=== PATIENT | female | born 1960 | race Caucasian/White ===

== ENCOUNTER → 2017-05-26 10:19 | Outpatient (REF) | payer MEDICARE, MEDICAID, SELFPAY ==
[2017-05-26 14:04] LABS: Amphetamine/Metha Screen,Urine Negative ng/mL (<1000); Barbiturates Screen,Urine Negative ng/mL (<200); Benzodiazepines Screen,Urine Positive ng/mL (200); Cannabinoid Screen,Urine Negative ng/mL (<50); Cocaine Screen,Urine Negative ng/g (<300); Methadone Screen,Urine Negative ng/mL (<300); Opiate Screen,Urine Negative ng/mL (<300); Phencyclidine Screen,Urine Negative ng/mL (<25)
== END ==
LOC: LAB 10:19
PROVIDERS: Visit Provider Emergency Medicine
DX: Z79.899 Other long term (current) drug therapy (principal)
CPT/HCPCS: 80305

== ENCOUNTER → 2017-05-27 10:03 | Outpatient (POV) | payer MEDICARE, MEDICAID, SELFPAY | PROVIDERS: PCP Emergency Medicine; Visit Provider Dermatology | DX: Z00.00 Encounter for general adult medical examination without abnormal findings (principal) ==

== ENCOUNTER → 2017-08-05 14:50 | Outpatient (CLI) | payer MEDICARE, MEDICAID, SELFPAY ==
--- NOTE | 2017-08-05 14:53 | CA_ITS ---
PROCEDURE: 2-D M-mode and color Doppler study INDICATIONS FOR THE TEST: Chest painx COPD Heart Murmur Tobacco Smoking Palpitationsx Fatiguex Syncopex Edema HypertensionxDiabetes Mellitus Rheumatic Fever SOBxDOE Obesity Hyperlipidemiax Family History HD Additional History PATIENT INFORMATION HEIGHT: 5'4'' WEIGHT:176 GENDER: Female B/P: 107/66 2-D/M-MODE INTERPRETATION: 2-D MEASUREMENTS OBSERVED VALUES IN CMS Right Ventricular Dimension (RVDd) 2.5 Interventricular Septum (Thickness)(IVsd) 0.9 Left Ventricular Internal Dimensions(LVIDd) 4.4 Left Ventricular Posterior Wall (Thickness)(LVPWd) 0.8 Aortic Root 2.7 Aortic Cusp Separation 1.9 Left Atrial Dimensions (LAD) 3.1 2D 1. Left atrium is normal size, left ventricle is normal size, there is no concentric left ventricular hypertrophy, visually estimated ejection fraction 55% with no obvious regional wall motion abnormality. 2. The right atrium is normal size, right ventricle is qualitatively mildly enlarged with normal contractility. 3. The aortic, mitral and tricuspid valve is normal. 4. The pulmonic valve is poorly visualized. 5. No significant pericardial effusion noted. DOPPLER INTERROGATION: Doppler interrogation of the aortic, mitral and tricuspid valve reveals presence of mild mitral and tricuspid regurgitation, tricuspid regurgitant jet velocity insufficient for calculation of the right ventricular systolic pressure, grade 1 diastolic dysfunction seen without tissue Doppler evidence of raised left atrial pressure. CONCLUSION: 1. Normal left ventricular size, preserved left ventricular systolic function, visually estimated ejection fraction 55% with no obvious regional wall motion abnormality, grade 1 diastolic dysfunction seen without tissue Doppler evidence of raised left atrial pressure. 2. Mild mitral and tricuspid regurgitation 3. No significant pericardial effusion noted.
== END ==
PROVIDERS: PCP Emergency Medicine; Visit Provider Internal Medicine
DX: R07.89 Other chest pain (principal); E78.5 Hyperlipidemia, unspecified
CPT/HCPCS: 93306

== ENCOUNTER → 2017-08-20 13:55 | Outpatient (CLI) | payer MEDICARE, MEDICAID, SELFPAY ==
[2017-08-20 14:39] LABS: Amphetamine/Metha Screen,Urine Negative ng/mL (<1000); Barbiturates Screen,Urine Negative ng/mL (<200); Benzodiazepines Screen,Urine Positive ng/mL (200); Cannabinoid Screen,Urine Negative ng/mL (<50); Cocaine Screen,Urine Negative ng/g (<300); Methadone Screen,Urine Negative ng/mL (<300); Opiate Screen,Urine Negative ng/mL (<300); Phencyclidine Screen,Urine Negative ng/mL (<25)
== END ==
PROVIDERS: Visit Provider Emergency Medicine
DX: Z79.899 Other long term (current) drug therapy (principal)
CPT/HCPCS: 80305

== ENCOUNTER → 2017-11-16 09:21 | Outpatient (REF) | payer MEDICARE, MEDICAID, SELFPAY ==
[2017-11-16 14:04] LABS: Basophils # 0.1 K/mm3 (0-0.2); Basophils % 0.7 % (0.1-2.0); Eosinophils # 0.1 K/mm3 (0.0-0.4); Eosinophils % 0.9 % (0.1-12.0); Hematocrit 35.9 % (37.0-47.0); Hemoglobin 11.7 g/dL (12.2-16.2); Lymphocytes # 3.2 K/mm3 (0.7-4.5); Lymphocytes % 36.2 K/mm3 (10-50); Mean Corpuscular HGB Conc 32.5 g/dL (31.8-35.4); Mean Corpuscular Hemoglobin 28.7 pg (27.0-31.2); Mean Corpuscular Volume 88.2 fl (81-99); Mean Platelet Volume 7.7 fl (7.4-10.4); Monocytes # 0.7 K/mm3 (0.1-1.0); Monocytes % 7.8 % (1.7-9.3); Neutrophils # 4.7 K/mm3 (1.8-7.8); Neutrophils % 54.4 % (37.0-80.0); Platelet Count 372 K/mm3 (142-424); Red Blood Count 4.07 M/mm3 (4.20-5.40); Red Cell Distribution Width 13.2 % (11.5-17.5); White Blood Count 8.7 K/mm3 (4.8-10.8)
[2017-11-16 15:45] LABS: Amphetamine/Metha Screen,Urine Negative ng/mL (<1000); Barbiturates Screen,Urine Negative ng/mL (<200); Benzodiazepines Screen,Urine Positive ng/mL (<200); Cannabinoid Screen,Urine Negative ng/mL (<50); Cocaine Screen,Urine Negative ng/mL (<300); Methadone Screen,Urine Negative ng/mL (<300); Opiate Screen,Urine Negative ng/mL (<300); Phencyclidine Screen,Urine Negative ng/mL (<25)
[2017-11-16 16:05] LABS: Alanine Aminotransferase 24 U/L (12-78); Albumin Level 3.9 gm/dL (3.4-5.0); Alkaline Phosphatase 110 U/L (46-116); Anion Gap 15.3 mEq/L (5-15); Aspartate Amino Transferase 16 U/L (15-37); Bilirubin,Total 0.3 mg/dL (0.2-1.0); Blood Urea Nitrogen 6 mg/dL (7-18); Calcium 9.2 mg/dL (8.5-10.1); Carbon Dioxide 30 mmol/L (21.0-32.0); Chloride 101 mmol/L (98-107); Creatinine,Serum 1.26 mg/dL (0.55-1.02); Estimated Glomerular Filt Rate 44 ml/min (>60); Free T4 (Free Thyroxine) 0.94 ng/dl (0.76-1.46); GFR (African American) 53 ML/MIN (>60); Globulin 3.9 gm/dl (1.3-3.2); Glucose 95 mg/dL (74-106); Potassium 4.3 mmoL/L (3.5-5.1); Sodium 142 mmol/L (136-145); Thyroid Stimulating Hormone 2.36 uIU/ml (0.358-3.740); Total Protein,Serum 7.8 gm/dL (6.4-8.2)
[2017-11-19 06:33] LABS: Vitamin D 25 Hydroxy 24.4 ng/mL (30.0-100.0)
== END ==
LOC: LAB 09:21
PROVIDERS: Visit Provider Emergency Medicine
DX: Z79.899 Other long term (current) drug therapy (principal); R53.83 Other fatigue
CPT/HCPCS: 80053; 80305; 82652; 84439; 84443; 85025

== ENCOUNTER → 2018-01-13 08:56 | Outpatient (CLI) | payer MEDICARE, MEDICAID, SELFPAY ==
--- NOTE | 2018-01-13 08:57 | MM_ITS ---
MM Dig screening mamm BI w/CAD CAD Screening COMPARISON: Digital mammograms with CAD 08/20/2016 and 06/27/2015 INDICATION: There is a history of breast cancer patient paternal cousin and paternal aunt TECHNIQUE: Standard CC and MLO images were obtained. R2 CAD reviewed. FINDINGS: Prominent heterogenic fibroglandular densities are seen in the central portions of both breast. There is a stable asymmetric density near the axilla tail right breast. However the possible new asymmetric density upper portion of the right breast only definitely seen on MLO projection. Recommend the patient return for spot compression view and 90 degrees lateral view and rolled CC views of the right right breast and ultrasound may be necessary as well. There are no suspicious microcalcifications. IMPRESSION: Heterogenic density with possible new density right breast BI-RADS Category: 0 Need Additional Imaging Evaluation RECOMMENDED FOLLOW-UP: IMM - IMMEDIATE FOLLOW-UP RECOMMENDED (A letter has been sent to the patient regarding results of the study.)
--- NOTE | 2018-01-13 08:57 | US_ITS ---
US breast LT complete INDICATION: Left breast pain ORDERING PHYSICIAN: Holland Estes MD PATIENT AGE: 58 years COMPARISON: 06/27/2015 TECHNIQUE: Left breast ultrasound performed along with axilla FINDINGS: There are multiple scattered cystic areas noted some of which are complex. 5 mm hypoechoic nodule at 2:00. 5 mm hypoechoic nodule at 2:00 near the nipple. These were not demonstrated previously. 6 mm hypoechoic nodule at 3:00 9 mm hypoechoic nodule at 3:00 5 mm hypoechoic nodule at 4:00 not demonstrated previously with some internal septations 8 x 3 mm hypoechoic nodule at 9:00 not demonstrated previously 6 mm hypoechoic nodule with internal septation at 10:00 6 an 8 mm hypoechoic nodules in the retroareolar region No suspicious solid appearing nodules are evident IMPRESSION: Multiple hypoechoic nodules some of which are cysts and some of which likely represent complex cyst. Some were not present previously BI-RADS Category: 3 Probably Benign Finding Short Term Follow-up RECOMMENDED FOLLOW-UP: 6M - 6 MONTH FOLLOW-UP (A letter has been sent to the patient regarding results of the study.)
--- NOTE | 2018-01-13 09:43 | US_ITS ---
US kidney retroperitoneal comp HISTORY: ITS.REASON: azotemia ORDERING PHYSICIAN: Holland Estes MD PATIENT AGE: 57 years Comparison: None FINDINGS: RIGHT KIDNEY:Unremarkable. Normal size and echogenicity. No hydronephrosis. 9 x 4 x 5 cm LEFT KIDNEY:Unremarkable. No hydronephrosis. Normal size and echogenicity. 9 x 4 x 5 cm. There is some mild cortical lobulation of the left kidney OTHER FINDINGS: Blood flow present to both kidneys. IMPRESSION: 1. No hydronephrosis. 2. Mild cortical lobulation of left kidney suggesting mild scarring
== END ==
PROVIDERS: PCP Emergency Medicine; Visit Provider Nurse Practitioner Obstetrics & Gynecology
DX: Z12.31 Encounter for screening mammogram for malignant neoplasm of breast (principal); N64.4 Mastodynia; R79.89 Other specified abnormal findings of blood chemistry; R92.2 Inconclusive mammogram
CPT/HCPCS: 76641; 76770; 77067

== ENCOUNTER → 2018-02-02 13:29 | Outpatient (CLI) | payer MEDICARE, MEDICAID, SELFPAY ==
--- NOTE | 2018-02-02 13:31 | MM_ITS ---
MM Dig mamm DX unilat RT CAD INDICATION: Follow-up abnormal screening study ORDERING PHYSICIAN: Holland Estes MD PATIENT AGE: 58 years COMPARISON: 01/13/2018 TECHNIQUE: Problem-solving views performed of the right breast FINDINGS: There is dense fibroglandular tissue. The asymmetric density noted in the superior aspect of the right breast partially compresses out with some minimal residual density noted in this region. There remains an asymmetric density in the deep upper right breast measuring 14 mm. This however has been present since 07/21/2013 and is probably related to asymmetric fibroglandular tissue. Nodular density was noted also in the deep central portion of the right breast slightly medial and 12 mm. Retroareolar nodular opacity at 4 mm also noted. An ultrasound was requested of the right breast but could not be performed on that date. No malignant appearing mass or malignant appearing microcalcification. IMPRESSION: Incomplete, additional evaluation suggested with right breast ultrasound. The patient was scheduled for ultrasound 02/08/2018. However, for reasons unknown to this reader, the exam was not performed on that day BI-RADS Category: 0 Need Additional Imaging Evaluation RECOMMENDED FOLLOW-UP: IMM - IMMEDIATE FOLLOW-UP RECOMMENDED (A letter has been sent to the patient regarding results of the study.)
--- NOTE | 2018-02-02 13:32 | XR_ITS ---
XR knee RT 4V HISTORY: Pain and swelling ITS.REASON: weightbearing views ORDERING PHYSICIAN: Holland Estes MD PATIENT AGE: 58 years COMPARISON: None FINDINGS: No fracture or dislocation. No lytic or blastic change. Normal mineralization. There are minor osteoarthritic changes of the lateral compartment with slight decrease in the joint space and minimal spurring along the lateral tibial spine. Minimal spurring also noted along the superior patella. IMPRESSION: Mild osteoarthritis, otherwise negative
--- NOTE | 2018-02-02 13:32 | XR_ITS ---
XR knee LT 4V HISTORY: Knee pain ITS.REASON: weightbearing views ORDERING PHYSICIAN: Holland Estes MD PATIENT AGE: 58 years COMPARISON: None FINDINGS: No fracture or dislocation. No lytic or blastic change. Normal mineralization. No significant arthritic changes evident. No other significant findings IMPRESSION: Negative left Knee
== END ==
PROVIDERS: PCP Emergency Medicine; Visit Provider Nurse Practitioner Obstetrics & Gynecology
DX: R92.2 Inconclusive mammogram (principal); M25.561 Pain in right knee; M25.562 Pain in left knee
CPT/HCPCS: 73564; 77065

== ENCOUNTER → 2018-02-09 09:41 | Outpatient (REF) | payer MEDICARE, MEDICAID, SELFPAY ==
[2018-02-09 15:23] LABS: Amphetamine/Metha Screen,Urine Negative ng/mL (<1000); Barbiturates Screen,Urine Negative ng/mL (<200); Benzodiazepines Screen,Urine Positive ng/mL (<200); Cannabinoid Screen,Urine Negative ng/mL (<50); Cocaine Screen,Urine Negative ng/mL (<300); Methadone Screen,Urine Negative ng/mL (<300); Opiate Screen,Urine Negative ng/mL (<300); Phencyclidine Screen,Urine Negative ng/mL (<25)
== END ==
LOC: LAB 09:41
PROVIDERS: PCP Emergency Medicine; Visit Provider Emergency Medicine
DX: Z79.899 Other long term (current) drug therapy (principal)
CPT/HCPCS: 80305

== ENCOUNTER → 2018-02-22 14:29 | Outpatient (CLI) | payer MEDICARE, MEDICAID, SELFPAY ==
--- NOTE | 2018-02-22 14:36 | US_ITS ---
US breast RT complete INDICATION: Follow-up abnormal mammogram ORDERING PHYSICIAN: Holland Estes MD PATIENT AGE: 58 years COMPARISON:05/23/2014, 02/02/2018, 01/13/2018 and others TECHNIQUE: Right breast ultrasound with axilla FINDINGS: 5 mm cyst at 12:00, 4 mm complex cyst at 2:00 3 mm cyst at 3:00 4 mm cyst at 4:00 6 mm cyst at 9:00 7 mm hypoechoic lesion at 10:00 with through transmission of sound and may represent a complex cyst wider than tall probably unchanged from 05/23/2014 ultrasound IMPRESSION: Multiple hypoechoic lesions consistent with cyst or complex cyst. Some of which may correspond to the mammographic abnormalities. Recommend 6 month mammographic and sonographic follow-up BI-RADS Category: 3 Probably Benign Finding Short Term Follow-up RECOMMENDED FOLLOW-UP: 6M - 6 MONTH FOLLOW-UP (A letter has been sent to the patient regarding results of the study.)
== END ==
PROVIDERS: PCP Emergency Medicine; Visit Provider Nurse Practitioner Obstetrics & Gynecology
DX: R92.2 Inconclusive mammogram (principal)
CPT/HCPCS: 76641

== ENCOUNTER → 2018-03-31 13:14 | Outpatient (POV) | payer MEDICARE, MEDICAID, SELFPAY | PROVIDERS: Visit Provider Internal Medicine Nephrology | DX: Z00.00 Encounter for general adult medical examination without abnormal findings (principal) ==

== ENCOUNTER → 2018-05-16 14:01 | Outpatient (CLI) | payer MEDICARE, MEDICAID, SELFPAY ==
[2018-05-16 14:47] LABS: Amphetamine/Metha Screen,Urine Negative ng/mL (<1000); Barbiturates Screen,Urine Negative ng/mL (<200); Benzodiazepines Screen,Urine Positive ng/mL (<200); Cannabinoid Screen,Urine Negative ng/mL (<50); Cocaine Screen,Urine Negative ng/mL (<300); Methadone Screen,Urine Negative ng/mL (<300); Opiate Screen,Urine Negative ng/mL (<300); Phencyclidine Screen,Urine Negative ng/mL (<25)
== END ==
PROVIDERS: Visit Provider Emergency Medicine
DX: Z79.899 Other long term (current) drug therapy (principal)
CPT/HCPCS: 80305

== ENCOUNTER → 2018-05-24 08:28 | Outpatient (CLI) | payer MEDICARE, MEDICAID, SELFPAY ==
[2018-05-24 08:46] LABS: Basophils % 0.5 % (0.1-2.0); Eosinophils # 0.1 K/mm3 (0.0-0.4); Eosinophils % 1.1 % (0.1-12.0); Hematocrit 38.5 % (37.0-47.0); Hemoglobin 12.1 g/dL (12.2-16.2); Lymphocytes # 3.3 K/mm3 (0.7-4.5); Lymphocytes % 36.3 % (10-50); Mean Corpuscular HGB Conc 31.4 g/dL (31.8-35.4); Mean Corpuscular Hemoglobin 28.4 pg (27.0-31.2); Mean Corpuscular Volume 90.5 fl (81-99); Mean Platelet Volume 8.8 fl (7.4-10.4); Monocytes # 0.4 K/mm3 (0.1-1.0); Monocytes % 4.5 % (1.7-9.3); Neutrophils # 5.3 K/mm3 (1.8-7.8); Neutrophils % 57.7 % (37.0-80.0); Platelet Count 349 K/mm3 (142-424); Red Blood Count 4.25 M/mm3 (4.20-5.40); Red Cell Distribution Width 12.8 % (11.5-17.5); White Blood Count 9.2 K/mm3 (4.8-10.8)
[2018-05-24 09:43] LABS: Alanine Aminotransferase 19 U/L (12-78); Albumin Level 3.6 gm/dL (3.4-5.0); Alkaline Phosphatase 96 U/L (46-116); Anion Gap 11.7 mEq/L (5-15); Aspartate Amino Transferase 18 U/L (15-37); Bilirubin,Total 0.3 mg/dL (0.2-1.0); Blood Urea Nitrogen 12 mg/dL (7-18); Calcium 9.3 mg/dL (8.5-10.1); Carbon Dioxide 34 mmol/L (21.0-32.0); Chloride 99 mmol/L (98-107); Chol/HDL Ratio 4.5 (1-3.5); Cholesterol 201 mg/dL (140-200); Creatinine,Serum 1.35 mg/dL (0.55-1.02); Estimated Glomerular Filt Rate 40 ml/min (>60); GFR (African American) 49 ML/MIN (>60); Globulin 3.6 gm/dl (1.3-3.2); Glucose 124 mg/dL (74-106); HDL Cholesterol 45 mg/dL (29-89); LDL Cholesterol 92 mg/dL (0-130); Potassium 3.7 mmoL/L (3.5-5.1); Sodium 141 mmol/L (136-145); Total Protein,Serum 7.2 gm/dL (6.4-8.2); Triglycerides 322 mg/dL (30-200); VLDL Cholesterol 64 mg/dL (0-40)
[2018-05-24 11:08] LABS: Erythrocyte Sedimentation Rate 37 mm/hr (0-30)
== END ==
PROVIDERS: Visit Provider Internal Medicine Adolescent Medicine
DX: M35.3 Polymyalgia rheumatica (principal); E78.5 Hyperlipidemia, unspecified
CPT/HCPCS: 36415; 80053; 80061; 85025; 85651

== ENCOUNTER → 2018-06-02 08:35 | Outpatient (CLI) | payer MEDICARE, MEDICAID, SELFPAY ==
--- NOTE | 2018-06-02 08:41 | XR_ITS ---
XR hand RT min 3V, XR hand LT min 3V HISTORY: . Left and: right hand pain hand pain bilateral ORDERING PHYSICIAN: Abdirahman Castro MD PATIENT AGE: 58 years COMPARISON: Left hand 3 view TECHNIQUE: PA, Oblique and Lateral Hand ========= RIGHT HAND: No fracture or dislocation. No lytic or blastic change. There is normal mineralization.. . Only very slight narrowing at the DIP joints most evident at index finger & long finger /third finger. This reflect early degenerative changes here. Less evident DIP joint space narrowing at fourth and fifth finger on right.. . Borderline narrowing PIP joint of ring finger... No erosive changes evident.. The metacarpals are intact with carpals satisfactory and symmetric. Borderline-subtle narrowing questioned at lateral margin of the first MCP joint may reflect some very early minor degenerative changes here.. Only borderline narrowing at the carpal-metacarpal joint . Minor Undulation of the lateral aspect distal radius appears to be symmetric bilaterally and reflects the old close growth plate ======= LEFT HAND No fracture or dislocation. No lytic or blastic change. There is normal mineralization.. . Only very slight narrowing at the DIP joints most evident at long finger /third finger reflect early degenerative changes here. Less evident DIP joint space narrowing at second, fourth and fifth finger. . Borderline narrowing PIP joint of ring finger... No erosive changes evident.. The metacarpals are intact with carpals satisfactory and symmetric. Only borderline narrowing at the carpal-metacarpal joint . Small degenerative cystic feature at the distal navicular on left. Minor Undulation of the lateral aspect distal radius appears to be symmetric bilaterally and reflects the old close growth plate. ------ IMPRESSION: . No acute findings. No fracture. Subtle early degenerative arthritic changes at DIP joints bilaterally, Right hand-with most notable narrowing & early arthritic changes at the DIP joint of second & third finger. Left hand- of arthritic changes most notable at DIP joint the third finger and followed by second finger DIP joint.. Borderline narrowing MCP joint on right, more than left. Minor other observations in text.
== END ==
PROVIDERS: PCP Internal Medicine Adolescent Medicine; Visit Provider Orthopaedic Surgery
DX: M79.642 Pain in left hand (principal); M79.641 Pain in right hand
CPT/HCPCS: 73130

== ENCOUNTER → 2018-08-03 13:10 | Outpatient (POV) | payer MEDICARE, MEDICAID, SELFPAY | DX: Z00.00 Encounter for general adult medical examination without abnormal findings (principal) ==

== ENCOUNTER → 2018-08-12 17:32 | Outpatient (CLI) | payer MEDICARE, MEDICAID, SELFPAY ==
[2018-08-12 21:08] LABS: Amphetamine/Metha Screen,Urine Negative ng/mL (<1000); Barbiturates Screen,Urine Negative ng/mL (<200); Benzodiazepines Screen,Urine Negative ng/mL (<200); Cannabinoid Screen,Urine Negative ng/mL (<50); Cocaine Screen,Urine Negative ng/mL (<300); Methadone Screen,Urine Negative ng/mL (<300); Opiate Screen,Urine Negative ng/mL (<300); Phencyclidine Screen,Urine Negative ng/mL (<25)
[2018-08-20 15:25] LABS: Alprazolam Negative (Cutoff=100); Benzodiazepines Negative ng/mL (Cutoff=100); Clonazepam Negative (Cutoff=100); Flurazepam Negative (Cutoff=100); Lorazepam Negative (Cutoff=100); Midazolam Negative (Cutoff=100); Temazepam Negative (Cutoff=100); Triazolam Negative (Cutoff=100)
== END ==
PROVIDERS: Visit Provider Emergency Medicine
DX: Z79.899 Other long term (current) drug therapy (principal); F41.9 Anxiety disorder, unspecified
CPT/HCPCS: 80305; 80346

== ENCOUNTER → 2018-10-17 10:26 | Outpatient (POV) | payer MEDICARE, MEDICAID, SELFPAY | PROVIDERS: Visit Provider Specialist | DX: R20.2 Paresthesia of skin (principal); M79.601 Pain in right arm; M79.602 Pain in left arm | CPT/HCPCS: 95886; 95909 ==

== ENCOUNTER → 2018-10-17 12:37 | Outpatient (CLI) | payer MEDICARE, MEDICAID, SELFPAY ==
--- NOTE | 2018-10-17 13:00 | FL_ITS ---
FL barium swallow modified ORDERING PHYSICIAN : Joni Robertson MD PATIENT AGE: 58 years GENDER: Female HISTORY:ITS.REASON: DYSPHAGIA COMPARISON: None. TECHNIQUE: Lateral fluoroscopic imaging. FINDINGS: Patient drank and eat all consistencies without gross aspiration. With the thinnest of the liquids there was mild delay of passage of the food bolus from the oral cavity into the hypopharynx. Again there is no aspiration. IMPRESSION: Oral and very mild dysphagia primarily at the level of the oral cavity with the thin liquids. No evidence of gross aspiration.
--- NOTE | 2018-10-17 14:41 | HMH.SLMBS2 ---
Speech & Language Evaluation Speech/Language Mod Barium Swallow Start: 10/17/18 14:31 Freq: once Status: Complete Protocol: Document 10/17/18 14:31 RADHA (Rec: 10/17/18 14:41 RADHA [id number]) MBS Recommendations Diet Dietary Recommendations Regular Treatment/Strategies Strategy/Precaution Recommend Sitting Upright (90 deg),Chin Tuck Referrals/Other Recommended Referrals Dental Evaluation Other Recommendations Follow up with dentist to assess denture fit. Mod Barium Swallow Impressions Summary and Impressions Oral Phase Impression Minimal Impairment Oral Phase Summary Minimal premature loss of thin liquids over the back of tongue. Resolved with chin tuck strategy. Pharyngeal Phase Impression No Impairment (WFL) Speech/Language MBS Assessment/Goals/Plan Assessment Date of Evaluation: 10/17/18 Evaluation Type Initial Certification Assessment/Problems Patient reports that she has gotten choked on fluids 2-3 times in past; Reports sensation of food or something in throat resulting in consistent throat clearing ; Does Patient Qualify for Service No Qualify/Failure Comment Patient was able to demonstrate compensatory strategy today independently and verbalized understanding of strategy and why it is helpful. No aspiration or penetration of liquids was seen on the MBS. Recommendations PHYSICIAN CERTIFICATION: The specified therapy services are required, authorized, and reviewed every 30 days. Diet Recommendations Normal Liquid Type Recommendations Normal/Thin Dysphagia Swallow Precautions/Strategies Sitting Upright (90 deg),Chin Tuck Plan Pt/Guardian verbally ack understanding Yes of dx/prognosis/goals Pt/Guardian verbally ack understanding Yes of/consent to tx prog G -code Required No Education Instructions provided Patient educated on chin tuck and sniff sniff swallow technique to decrease need for throat clearing; Pt/Caregiver able to recall information Able to recall/restate Reinforcement needed No Mod Barium Swallow Setup Exam Setup Radiologist Mikhail Tucker Level of Consciousness
== END ==
PROVIDERS: PCP Internal Medicine Adolescent Medicine; Visit Provider Internal Medicine Adolescent Medicine
DX: R13.10 Dysphagia, unspecified (principal); R20.2 Paresthesia of skin; M79.602 Pain in left arm; M79.601 Pain in right arm
CPT/HCPCS: 70371; 92611; 95886; 95909

== ENCOUNTER → 2018-11-01 12:56 | Outpatient (POV) | payer MEDICARE, MEDICAID, SELFPAY | PROVIDERS: Visit Provider Dermatology | DX: Z00.00 Encounter for general adult medical examination without abnormal findings (principal) ==

== ENCOUNTER → 2018-11-11 13:49 | Outpatient (CLI) | payer MEDICARE, MEDICAID, SELFPAY ==
[2018-11-11 14:14] LABS: Amphetamine/Metha Screen,Urine Negative ng/mL (<1000); Barbiturates Screen,Urine Negative ng/mL (<200); Benzodiazepines Screen,Urine Positive ng/mL (<200); Cannabinoid Screen,Urine Negative ng/mL (<50); Cocaine Screen,Urine Negative ng/mL (<300); Methadone Screen,Urine Negative ng/mL (<300); Opiate Screen,Urine Negative ng/mL (<300); Phencyclidine Screen,Urine Negative ng/mL (<25)
== END ==
PROVIDERS: Visit Provider Emergency Medicine
DX: Z79.899 Other long term (current) drug therapy (principal)
CPT/HCPCS: 80305

== ENCOUNTER → 2019-01-25 10:31 | Outpatient (CLI) | payer MEDICARE, MEDICAID, SELFPAY ==
--- NOTE | 2019-01-25 10:32 | US_ITS ---
PROCEDURE: MM DIG MAMM BI DX W/CAD CLINICAL INDICATION: Dx Mammogram Bilateral there is a history of breast cancer in patient's paternal cousin and paternal aunt. There has been a previous biopsy left breast for benign disease. COMPARISON: [facility] DIG MAMM-SCREEN HERMELINDA W/CAD from 08/20/2016 [facility] MM Dig screening mamm BI w/CAD from 01/13/2018 DXRT MM Dig mamm DX unilat RT CAD from 02/02/2018 TECHNIQUE: Standard CC and MLO images were obtained. R2 CAD reviewed. FINDINGS: Prominent diffuse heterogenic fibroglandular densities are seen in both breasts somewhat lessening the sensitivity of mammography. Additional spot compression views of the right breast were obtained and the asymmetric density near the axillary tail is stable and unchanged from previous exams. The other nodular density central portion the right breast described previously is is present and stable and unchanged from the previous exam. Ultrasound was recommended previously and never performed and again I would recommend ultrasound the right breast though this certainly has benign features and is likely a small cyst. There is no new or suspicious lesion and no suspicious microcalcifications. IMPRESSION: Diffusely dense and heterogenic parenchymal pattern with asymmetric nodular benign-appearing density right breast BI-RAD Category: 0 Need Additional Imaging Evaluation FOLLOW-UP: IMM Immediate Follow-up Recommended (A letter has been sent to the patient regarding results of the study.) Dictated by: Dr. Gilbert Cassidy MD 02/03/2019 10:[address] Gilbert Cassidy MD in [place] 02/03/2019 10:33
--- NOTE | 2019-01-25 10:32 | US_ITS ---
PROCEDURE: US THYROID CLINICAL INDICATION: Thyroid disorder COMPARISON: None. FINDINGS: Right lobe: 1.2 x 4.0 x 1.3 centimeters. Left lobe: 1.3 x 3.3 x 1.3 centimeters. Isthmus: 1.3 millimeters. Additional findings: The echogenicity of the thyroid tissue is normal and homogeneous without nodules. IMPRESSION: Normal exam. Dictated by: Mikhail Tucker 01/25/2019 14:18 Electronically signed by Mikhail Tucker in 01/25/2019 14:18
--- NOTE | 2019-01-25 10:32 | US_ITS ---
PROCEDURE: US TRANSVAGINAL CLINICAL INDICATION: US T/V- Ovarian Cyst COMPARISON: PTV US PELVIS-TRANSVAGINAL ONLY from 10/24/2014 FINDINGS: At the vaginal cuff again seen is a small 5.9 millimeter anechoic focus with smooth cifuentes. The patient underwent bilateral salpingo-oophorectomy and hysterectomy. There are no other ultrasound abnormality is in the lower pelvis. IMPRESSION: No change. Small cystic focus at the vaginal cuff. Dictated by: Mikhail Tucker 01/25/2019 14:08 Electronically signed by Mikhail Tucker in [place] 01/25/2019 14:08
== END ==
PROVIDERS: PCP Internal Medicine Adolescent Medicine; Visit Provider Nurse Practitioner Obstetrics & Gynecology
DX: N83.209 Unspecified ovarian cyst, unspecified side (principal); R92.8 Other abnormal and inconclusive findings on diagnostic imaging of breast; E07.9 Disorder of thyroid, unspecified; R92.2 Inconclusive mammogram
CPT/HCPCS: 76536; 76641; 76830; 77066

== ENCOUNTER → 2019-02-10 17:15 | Outpatient (CLI) | payer MEDICARE, MEDICAID, SELFPAY ==
[2019-02-10 18:11] LABS: Amphetamine/Metha Screen,Urine Negative ng/mL (<1000); Barbiturates Screen,Urine Negative ng/mL (<200); Benzodiazepines Screen,Urine Positive ng/mL (<200); Cannabinoid Screen,Urine Negative ng/mL (<50); Cocaine Screen,Urine Negative ng/mL (<300); Methadone Screen,Urine Negative ng/mL (<300); Opiate Screen,Urine Negative ng/mL (<300); Phencyclidine Screen,Urine Negative ng/mL (<25)
== END ==
PROVIDERS: Visit Provider Emergency Medicine
DX: Z79.899 Other long term (current) drug therapy (principal)
CPT/HCPCS: 80305

== ENCOUNTER → 2019-05-10 17:49 | Outpatient (CLI) | payer MEDICARE, MEDICAID, SELFPAY ==
[2019-05-10 19:29] LABS: Amphetamine/Metha Screen,Urine Negative ng/mL (<1000); Barbiturates Screen,Urine Negative ng/mL (<200); Benzodiazepines Screen,Urine Negative ng/mL (<200); Cannabinoid Screen,Urine Negative ng/mL (<50); Cocaine Screen,Urine Negative ng/mL (<300); Methadone Screen,Urine Negative ng/mL (<300); Opiate Screen,Urine Negative ng/mL (<300); Phencyclidine Screen,Urine Negative ng/mL (<25)
[2019-05-21 16:08] LABS: Alprazolam Negative (Cutoff=100); Benzodiazepines Negative ng/mL (Cutoff=100); Clonazepam Negative (Cutoff=100); Flurazepam Negative (Cutoff=100); Lorazepam Negative (Cutoff=100); Midazolam Negative (Cutoff=100); Temazepam Negative (Cutoff=100); Triazolam Negative (Cutoff=100)
== END ==
PROVIDERS: Visit Provider Emergency Medicine
DX: Z79.899 Other long term (current) drug therapy (principal)
CPT/HCPCS: 80305; 80346

== ENCOUNTER → 2019-05-19 14:28 | Outpatient (CLI) | payer MEDICARE, MEDICAID, SELFPAY ==
--- NOTE | 2019-05-19 14:28 | US_ITS ---
PROCEDURE: US BREAST LT COMPLETE CLINICAL INDICATION: US Left Breast- Breast tenderness and hx of cyst COMPARISON: BL US BREAST-LT COMPLETE W/AXILLA from 06/27/2015 MM DIG MAMM BI DX W/CAD from 01/25/2019 US BREAST LT COMPLETE from 01/25/2019 FINDINGS: There is a 4 mm cyst at 2 o'clock. There is a septated 11 mm cyst at 4 o'clock, a septated 8 mm cyst is present at 5 o'clock. A septated 8 mm cyst is present at 9 o'clock. And 11 mm hypoechoic nodules present at 10 o'clock near the nipple with enhanced through transmission of sound consistent with a complicated cyst. IMPRESSION: No significant change multiple left breast complicated cyst. No new suspicious nodules apparent Dictated by: Giovanni Redmond MD 05/31/2019 08:15 Electronically signed by Giovanni Redmond MD in [place] 05/31/2019 08:15
== END ==
PROVIDERS: PCP Emergency Medicine; Visit Provider Nurse Practitioner Obstetrics & Gynecology
DX: N64.4 Mastodynia (principal)
CPT/HCPCS: 76641

== ENCOUNTER → 2019-06-05 13:40 | Outpatient (POV) | payer MEDICARE, MEDICAID, SELFPAY | PROVIDERS: Visit Provider Internal Medicine Nephrology | DX: Z00.00 Encounter for general adult medical examination without abnormal findings (principal) ==

== ENCOUNTER → 2019-06-14 17:22 | Outpatient (CLI) | payer MEDICARE, MEDICAID, SELFPAY ==
[2019-06-14 22:38] LABS: Amphetamine/Metha Screen,Urine Negative ng/ml (<1000)
[2019-06-14 22:39] LABS: Barbiturates Screen,Urine Negative ng/ml (<200)
[2019-06-14 22:40] LABS: Benzodiazepines Screen,Urine Positive ng/ml (<200); Cannabinoid Screen,Urine Negative ng/ml (<50)
[2019-06-14 22:41] LABS: Cocaine Screen,Urine Negative ng/ml (<300); Methadone Screen,Urine Negative ng/ml (<300)
[2019-06-14 22:42] LABS: Opiate Screen,Urine Negative ng/ml (<300)
[2019-06-14 22:43] LABS: Phencyclidine Screen,Urine Negative ng/ml (<25)
== END ==
PROVIDERS: Visit Provider Emergency Medicine
DX: Z79.899 Other long term (current) drug therapy (principal)
CPT/HCPCS: 80305

== ENCOUNTER → 2019-08-10 15:16 | Outpatient (CLI) | payer MEDICARE, MEDICAID, SELFPAY ==
--- NOTE | 2019-08-10 15:16 | MR_ITS ---
PROCEDURE: MR LUMBAR SPINE WO CON CLINICAL INDICATION: pain Low back pain, right-sided low back pain with injury, bilateral leg numbness, right leg numbness, right leg pain and tingling COMPARISON: ENT CONSULTANT/O MRI-L-SPINE W/O from 12/05/2012 TECHNIQUE: Standard multiplanar multiecho sequences are performed without contrast. 3-D MIP and myelographic images are also rendered and reviewed FINDINGS: There is normal alignment. Spinal cord ends at the L1 level. T11-T12: Unremarkable. T12-L1: There is a small Schmorl's node along the superior endplate of L1. The disc space has an unremarkable appearance. L1-L2, L2-L3, and L3-L4 have an unremarkable appearance. L4-5: There is a mild concentric bulging disc with mild facet and ligamentum hypertrophy with mild bilateral lateral recess and foraminal narrowing not significantly changed. Small annular fissure noted L5-S1: Mild concentric bulging disc not significantly changed.. Small annular fissure noted No disc herniation or canal stenosis. IMPRESSION: 1. No disc herniation or canal stenosis. 2. L4-5: There is a mild concentric bulging disc with mild facet and ligamentum hypertrophy with mild bilateral lateral recess and foraminal narrowing not significantly changed. Small annular fissure noted 3. L5-S1: Mild concentric bulging disc not significantly changed.. Small annular fissure noted Dictated by: Giovanni Redmond MD 08/11/2019 16:36 Electronically signed by Giovanni Redmond MD in [place] 08/11/2019 16:36
== END ==
PROVIDERS: PCP Emergency Medicine; Visit Provider Emergency Medicine
DX: M54.9 Dorsalgia, unspecified (principal); M54.5 Low back pain
CPT/HCPCS: 72148; 76376

== ENCOUNTER → 2019-09-25 13:52 | Outpatient (POV) | payer MEDICARE, MEDICAID, SELFPAY ==
[2019-09-25 13:53] VITALS: BMI 29.0
--- NOTE | 2019-10-02 08:00 | HMH.PMCON ---
Assessment and Plan (1) Lumbar facet joint pain Status: Acute Category: Medical Code(s): M54.5 - Low back pain (2) Lumbar disc disease with radiculopathy Status: Acute Category: Medical Code(s): M51.16 - Intervertebral disc disorders with radiculopathy, lumbar region - Assessment and plan all Dx Assessment and Plan for all problems:: I will send the patient information in regards to neuro stimulation and other options at our clinic offers. Patient will review it. Patient will follow-up with us in 1 to 2 weeks with any questions or thoughts in regards to moving forward with interventional treatment of pain. Dr. Pimentel has reviewed this note and agrees with this plan of care. This note was dictated using voice recognition software and may contain errors or omissions This encounter was performed as a telemedicine visit via secure 2 way video and audio to minimize risk and transmission of Covid-19. The patient and we understand the limitations of a telemedicine visit including inability to check reflexes, possibly missing subtle findings on physical exam. Alternative options were presented to the patient and the patient elected to proceed with the visit. We specifically discussed risk factors for Covid-19 including age, heart or lung disease, diabetes, immunosuppression and travel. We also discussed that NSAIDs may worsen Covid-19 infection symptoms and that they should not be used to treat Covid-19 symptoms. Patient was also informed that corticosteroids in any form oral or injectable will decrease immune response and may increase risk of Covid-[address] Pimentel has reviewed this patient's chart and this note and agrees with plan of care. Patient has been instructed to call the office if they have any issues prior to the next appointment. HPI - Data of Consult Consult date: 09/25/19 Requesting Physician: Venice Nunez APRN Primary Care Provider: Referral Provider, MD - Consult Narrative Reason for consult: Low back pain, leg pain History of present illness: Ms. Jackson is a 59 year old female who presents for consultation via telehealth. This is due to the pandemic. Patient is a pleasant 59-year-old white female who presents today for consultation in regards to her low back and leg pain. Patient states that she has generalized pain all over the place but she has been to Dr. Kline for pain management and received epidural and facet joint injections with no relief. Patient is currently on Percocet with her primary care physician. Patient is interested in other modalities of treatment. Patient has done physical therapy in the past with no relief. She says all activity increases pain while the only thing that decreases pain is Percocet. Patient is scheduled for an EMG on her bilateral legs. Patient has been seen by Dr. Gonzalez in the past and she is also been seen by orthopedic surgeon CC: Venice Nunez APRN [facility] History I have reviewed the patient's past medical history: Yes Medical History: Reports:: Anxiety, Asthma, Chronic Obstructive Pulmonary Disease (COPD), Congenital Heart Disease, Depression, Gastroesophageal Reflux Disease(GERD), Hyperlipidemia, Hypertension, Migraine, Osteoporosis, Palpitations, Valvular Heart Disease Denies:: Cancer, Diabetes Mellitus Type 1, Diabetes Mellitus Type 2, MRSA *Have you ever received a pneumonia vaccine?: Yes *Have you received a flu vaccine this season?: Yes Other Medical History: Reports: Arthritis, Fibromyalgia, Hypothyroidism, Osteoporosis Laterality Cases: Right: Breast Biopsy Other Surgeries: Yes: Angioplasty, Cardiac Catheterization, Cholecystectomy, Colonoscopy, Hysterectomy-Total, Other Amputation: No Fractures: No - *Social History Smoking Status: Never smoker Alcohol Intake: never Alcohol Intake Frequency:: other Substance Use Type: denies use *Occupational Status:: other Housing: house Household Members: other *Travel in the last 8 weeks:
== END ==
PROVIDERS: Visit Provider Clinical Nurse Specialist Family Health
DX: M51.16 Intervertebral disc disorders with radiculopathy, lumbar region (principal)
CPT/HCPCS: 99202

== ENCOUNTER → 2019-12-04 17:52 | Outpatient (CLI) | payer MEDICARE, MEDICAID, SELFPAY ==
[2019-12-04 19:32] LABS: Basophils # 0.1 K/mm3 (0-0.2); Basophils % 0.6 % (0.1-2.0); Eosinophils # 0.1 K/mm3 (0.0-0.4); Eosinophils % 0.8 % (0.1-12.0); Hematocrit 40.1 % (37.0-47.0); Hemoglobin 14.3 g/dL (12.2-16.2); Lymphocytes # 3.2 K/mm3 (0.7-4.5); Lymphocytes % 36.7 % (10-50); Mean Corpuscular HGB Conc 35.6 g/dL (31.8-35.4); Mean Corpuscular Hemoglobin 31.1 pg (27.0-31.2); Mean Corpuscular Volume 87.2 fl (81-99); Mean Platelet Volume 8.9 fl (7.4-10.4); Monocytes # 0.6 K/mm3 (0.1-1.0); Monocytes % 6.7 % (1.7-9.3); Neutrophils # 4.9 K/mm3 (1.8-7.8); Neutrophils % 55.2 % (37.0-80.0); Platelet Count 334 K/mm3 (142-424); Red Cell Distribution Width 12.9 % (11.5-17.5); White Blood Count 8.8 K/mm3 (4.8-10.8)
[2019-12-04 21:08] LABS: Erythrocyte Sedimentation Rate 37 mm/hr (0-30)
== END ==
PROVIDERS: Visit Provider Emergency Medicine
DX: M79.642 Pain in left hand (principal); M79.641 Pain in right hand
CPT/HCPCS: 85025; 85651

== ENCOUNTER → 2020-02-21 15:25 | Outpatient (CLI) | payer MEDICARE, MEDICAID, SELFPAY ==
--- NOTE | 2020-02-21 15:26 | MM_ITS ---
PROCEDURE: MM DIG SCREENING MAMM BI W/CAD Digital Breast Tomosynthesis Included CLINICAL INDICATION: Routine Screening Mammogram There is a history of breast cancer in the patient's paternal aunt and paternal cousin. There has been previous biopsy left breast for benign disease. The patient currently is on estrogen. COMPARISON: MG [facility] MM Dig screening mamm BI w/CAD from 01/13/2018 MG DXRT MM Dig mamm DX unilat RT CAD from 02/02/2018 MG MM DIG MAMM BI DX W/CAD from 01/25/2019 TECHNIQUE: Standard CC and MLO images and 3D Tomosynthesis was obtained. R2 CAD reviewed. FINDINGS: There is a diffusely dense and heterogenic parenchymal pattern bilaterally and the findings are symmetrical in each breast. There is a stable density axillary tail right breast likely asymmetric glandular elements. Sami images are most helpful in this type of dense breast parenchyma. There are no CAD markings. There is no suspicious lesion and no suspicious microcalcifications. IMPRESSION: Stable diffusely dense parenchymal pattern with no suspicious lesions seen BI-RAD Category: 1 Negative FOLLOW-UP: 1YR 1 Year Follow-up (A letter has been sent to the patient regarding results of the study.) Dictated by: Dr. Gilbert Cassidy MD 02/23/2020 08:01 Dr. Gilbert Cassidy MD in [place] 02/23/2020 08:01
--- NOTE | 2020-02-21 16:25 | MR_ITS ---
PROCEDURE: MR HEAD/BRAIN WO CON CLINICAL INDICATION: headaches PT C/O HEADACHES WITH PAIN AROUND LEFT EYE. PT HAS FAMILY HX OF BRAIN TUMOR. COMPARISON: No exams were available for comparison TECHNIQUE: Routine multiplanar multi echo sequences are performed without gadolinium enhancement. FINDINGS: No midline shift, mass effect, intracranial hemorrhage, or hydrocephalus. The cerebellopontine angles have an unremarkable appearance. The cerebellum and brainstem are unremarkable. There are few scattered T2 white matter hyperintensities which are nonspecific and may be related to minimal ischemic gliotic change from microvascular disease. The hippocampal gyri and temporal horns are unremarkable. The pituitary, optic chiasm, corpus callosum, and craniocervical junction are unremarkable. No sinus air-fluid level. There is some fluid signal in the right petrous bone laterally likely related to some fluid within a pneumatized petrous bone. IMPRESSION: 1. No acute intracranial findings. 2. Fluid signal in the right petrous bone laterally like related to some fluid/inflammatory change within a pneumatized right petrous bone Dictated by: Giovanni Redmond MD 02/22/2020 10:12 Giovanni Redmond MD in [place] 02/22/2020 10:12
== END ==
PROVIDERS: PCP Emergency Medicine; Visit Provider Emergency Medicine
DX: Z12.31 Encounter for screening mammogram for malignant neoplasm of breast (principal); R51.9 Headache, unspecified
CPT/HCPCS: 70551; 77063; 77067

== ENCOUNTER → 2020-05-09 08:29 | Outpatient (CLI) | payer MEDICARE, MEDICAID, SELFPAY ==
--- NOTE | 2020-05-09 08:33 | XR_ITS ---
PROCEDURE: XR HAND RT MIN 3V CLINICAL INDICATION: hand pain Hand and wrist pain COMPARISON: CR HANDL3 HAND-LT-3 VIEWS from 10/15/2016 CR HANDR3 HAND-RT 3 VIEWS from 10/15/2016 CR [id number] XR hand RT min 3V from 06/02/2018 CR [id number] XR hand LT min 3V from 06/02/2018 FINDINGS: No fracture or dislocation. No lytic or blastic change. There is normal mineralization. There are mild osteoarthritic changes of the 1st metacarpophalangeal joint which may be slightly worse. Mild osteoarthritis right 2nd DIP joint unchanged Other findings:None. IMPRESSION: Mild osteoarthritis 1st metacarpophalangeal joint and 2nd DIP joint otherwise negative Dictated by: Giovanni Redmond MD 05/09/2020 10:45 Giovanni Redmond MD in [place] 05/09/2020 10:45
--- NOTE | 2020-05-09 08:33 | XR_ITS ---
PROCEDURE: XR CHEST 2V CLINICAL HISTORY: shortness of breath With cough pain COMPARISON: CR CXR CHEST(2 VIEWS-NOT PORTABLE) from 11/01/2012 CR CXR CHEST(2 VIEWS-NOT PORTABLE) from 04/06/2014 CR CXR CHEST(2 VIEWS-NOT PORTABLE) from 11/19/2014 CT CTAC CTA-CHEST from 01/08/2017 FINDINGS: The cardiomediastinal silhouette and pulmonary vascularity are within normal limits. The lungs are clear without infiltrates, suspicious nodules, or pleural effusions. Calcified granuloma is present in the left lower lobe No acute bony abnormalities. IMPRESSION: No acute findings. Dictated by: Giovanni Redmond MD 05/09/2020 10:46 Giovanni Redmond MD in [facility] 05/09/2020 10:46
--- NOTE | 2020-05-09 08:33 | XR_ITS ---
PROCEDURE: XR HAND LT MIN 3V CLINICAL INDICATION: hand pain COMPARISON: CR HANDL3 HAND-LT-3 VIEWS from 10/15/2016 CR HANDR3 HAND-RT 3 VIEWS from 10/15/2016 CR [id number] XR hand RT min 3V from 06/02/2018 CR [id number] XR hand LT min 3V from 06/02/2018 FINDINGS: No fracture or dislocation. No lytic or blastic change. There is normal mineralization. Mild osteoarthritis involves the 1st metacarpophalangeal joint in the 3rd DIP joint and the 2nd DIP joint overall not significantly changed. No erosive changes evident. Other findings:None. IMPRESSION: Mild osteoarthritis unchanged Dictated by: Giovanni Redmond MD 05/09/2020 10:46 Giovanni Redmond MD in [place] 05/09/2020 10:46
== END ==
PROVIDERS: PCP Emergency Medicine; Visit Provider Emergency Medicine
DX: R06.02 Shortness of breath (principal); M79.642 Pain in left hand; M79.641 Pain in right hand
CPT/HCPCS: 71046; 73130

== ENCOUNTER → 2020-07-30 16:58 | Outpatient (CLI) | payer MEDICARE, MEDICAID, SELFPAY ==
[2020-07-30 19:31] LABS: Barbiturates Screen,Urine Negative ng/ml (<200)
[2020-07-30 19:32] LABS: Amphetamine/Metha Screen,Urine Negative ng/ml (<1000); Benzodiazepines Screen,Urine Positive ng/ml (<200)
[2020-07-30 19:33] LABS: Cannabinoid Screen,Urine Negative ng/ml (<50); Methadone Screen,Urine Negative ng/ml (<300)
[2020-07-30 19:34] LABS: Cocaine Screen,Urine Negative ng/ml (<300)
[2020-07-30 19:35] LABS: Opiate Screen,Urine Positive ng/ml (<300); Phencyclidine Screen,Urine Negative ng/ml (<25)
== END ==
PROVIDERS: Visit Provider Emergency Medicine
DX: M54.5 Low back pain (principal)
CPT/HCPCS: 80305

== ENCOUNTER → 2020-08-29 12:46 | Outpatient (POV) | payer MEDICARE, MEDICAID, SELFPAY | PROVIDERS: Visit Provider Internal Medicine Nephrology | DX: Z00.00 Encounter for general adult medical examination without abnormal findings (principal) ==

== ENCOUNTER → 2020-09-24 18:47 | Outpatient (CLI) | payer MEDICARE, MEDICAID, SELFPAY ==
[2020-09-24 19:11] LABS: Barbiturates Screen,Urine Negative ng/ml (<200)
[2020-09-24 19:12] LABS: Benzodiazepines Screen,Urine Negative ng/ml (<200); Cannabinoid Screen,Urine Negative ng/ml (<50)
[2020-09-24 19:14] LABS: Opiate Screen,Urine Negative ng/ml (<300)
[2020-09-24 19:15] LABS: Phencyclidine Screen,Urine Negative ng/ml (<25)
[2020-09-24 19:35] LABS: Cocaine Screen,Urine Negative ng/ml (<300); Methadone Screen,Urine Negative ng/ml (<300)
[2020-09-24 21:19] LABS: Amphetamine/Metha Screen,Urine Negative ng/ml (<1000)
== END ==
PROVIDERS: Visit Provider Emergency Medicine
DX: M54.5 Low back pain (principal); Z79.899 Other long term (current) drug therapy
CPT/HCPCS: 80305

== ENCOUNTER → 2020-11-19 18:15 | Outpatient (CLI) | payer MEDICARE, MEDICAID, SELFPAY ==
[2020-11-19 18:53] LABS: Basophils # 0.1 K/mm3 (0-0.2); Eosinophils # 0.1 K/mm3 (0.0-0.4); Eosinophils % 1.2 % (0.1-12.0); Hematocrit 41.6 % (37.0-47.0); Lymphocytes # 3.8 K/mm3 (0.7-4.5); Lymphocytes % 40.2 % (10-50); Mean Corpuscular HGB Conc 33.5 g/dL (31.8-35.4); Mean Corpuscular Hemoglobin 29.6 pg (27.0-31.2); Mean Corpuscular Volume 88.3 fl (81-99); Mean Platelet Volume 8.3 fl (7.4-10.4); Monocytes # 0.4 K/mm3 (0.1-1.0); Monocytes % 4.5 % (1.7-9.3); Neutrophils % 53.2 % (37.0-80.0); Platelet Count 320 K/mm3 (142-424); Red Blood Count 4.71 M/mm3 (4.20-5.40); Red Cell Distribution Width 13.2 % (11.5-17.5); White Blood Count 9.5 K/mm3 (4.8-10.8)
[2020-11-19 18:57] LABS: Alanine Aminotransferase 45 U/L (12-78); Albumin Level 4.8 g/dl (3.5-5.0); Albumin/Globulin Ratio 1.7 (1.1-1.8); Alkaline Phosphatase 95 U/L (38-126); Anion Gap 15.2 mEq/L (5-15); Aspartate Amino Transferase 50 U/L (14-36); Bilirubin,Total 0.6 mg/dl (0.2-1.3); Blood Urea Nitrogen 10 mg/dl (7-17); Calcium 9.3 mg/dl (8.4-10.2); Carbon Dioxide 30 mmol/L (22.0-30.0); Chloride 100 mmol/L (98-107); Chol/HDL Ratio 5.8 (1-3.5); Cholesterol 244 mg/dl (140-200); Estimated Glomerular Filt Rate 51 ml/min (>60); GFR (African American) 61 ML/MIN (>60); Globulin 2.9 g/dL (1.3-3.2); Glucose 134 mg/dl (74-100); HDL Cholesterol 42 mg/dl (40-60); Potassium 4.2 mmoL/L (3.5-5.1); Sodium 141 mmol/L (136-145); Total Protein,Serum 7.7 g/dl (6.3-8.2)
[2020-11-19 18:58] LABS: Triglycerides 409 mg/dl (30-150)
[2020-11-19 19:02] LABS: Barbiturates Screen,Urine Negative ng/ml (<200)
[2020-11-19 19:03] LABS: Amphetamine/Metha Screen,Urine Negative ng/ml (<1000); Benzodiazepines Screen,Urine Positive ng/ml (<200)
[2020-11-19 19:04] LABS: Methadone Screen,Urine Negative ng/ml (<300)
[2020-11-19 19:05] LABS: Cannabinoid Screen,Urine Negative ng/ml (<50); Cocaine Screen,Urine Negative ng/ml (<300)
[2020-11-19 19:06] LABS: Opiate Screen,Urine Negative ng/ml (<300)
[2020-11-19 19:07] LABS: Phencyclidine Screen,Urine Negative ng/ml (<25)
[2020-11-19 19:08] LABS: Direct LDL Cholesterol 124.06 mg/dL (100-129)
[2020-11-19 19:14] LABS: Free T4 (Free Thyroxine) 0.84 ng/dl (0.78-2.19)
[2020-11-19 19:29] LABS: Thyroid Stimulating Hormone 2.85 uIU/mL (0.465-4.68)
== END ==
PROVIDERS: Visit Provider Emergency Medicine
DX: E66.3 Overweight (principal); R53.83 Other fatigue; E55.9 Vitamin D deficiency, unspecified; M54.5 Low back pain; Z68.27 Body mass index [BMI] 27.0-27.9, adult
CPT/HCPCS: 80053; 80061; 80305; 82306; 84439; 84443; 85025

== ENCOUNTER → 2020-12-10 13:12 | Outpatient (POV) | payer MEDICARE, MEDICAID, SELFPAY | PROVIDERS: Visit Provider Dermatology | DX: Z00.00 Encounter for general adult medical examination without abnormal findings (principal) ==

== ENCOUNTER → 2020-12-24 13:50 | Outpatient (POV) | payer MEDICARE, MEDICAID, SELFPAY | PROVIDERS: Visit Provider Dermatology | DX: Z00.00 Encounter for general adult medical examination without abnormal findings (principal) ==

== ENCOUNTER → 2021-01-07 13:27 | Outpatient (POV) | payer MEDICARE, MEDICAID, SELFPAY | PROVIDERS: Visit Provider Dermatology | DX: Z00.00 Encounter for general adult medical examination without abnormal findings (principal) ==

== ENCOUNTER → 2021-01-14 13:02 | Outpatient (CLI) | payer MEDICARE, MEDICAID, SELFPAY | PROVIDERS: PCP Emergency Medicine; Visit Provider Nurse Practitioner | DX: Z20.822 Contact with and (suspected) exposure to COVID-19 (principal) | CPT/HCPCS: C9803; U0003; U0005 ==

== ENCOUNTER → 2021-01-29 18:08 | Outpatient (CLI) | payer MEDICARE, MEDICAID, SELFPAY ==
[2021-01-29 19:24] LABS: Amphetamine/Metha Screen,Urine Negative ng/ml (<1000); Barbiturates Screen,Urine Negative ng/ml (<200)
[2021-01-29 19:25] LABS: Benzodiazepines Screen,Urine Positive ng/ml (<200)
[2021-01-29 19:26] LABS: Cannabinoid Screen,Urine Negative ng/ml (<50); Cocaine Screen,Urine Negative ng/ml (<300)
[2021-01-29 19:27] LABS: Methadone Screen,Urine Negative ng/ml (<300)
[2021-01-29 19:28] LABS: Opiate Screen,Urine Negative ng/ml (<300)
[2021-01-29 19:30] LABS: Phencyclidine Screen,Urine Negative ng/ml (<25)
== END ==
PROVIDERS: Visit Provider Emergency Medicine
DX: M51.16 Intervertebral disc disorders with radiculopathy, lumbar region (principal)
CPT/HCPCS: 80305

== ENCOUNTER → 2021-03-04 12:31 | Outpatient (CLI) | payer MEDICARE, MEDICAID, SELFPAY ==
--- NOTE | 2021-03-04 12:34 | XR_ITS ---
PROCEDURE: XR CHEST AP CLINICAL HISTORY: atypical chest pain COMPARISON: CR CXR CHEST(2 VIEWS-NOT PORTABLE) from 04/06/2014 CR CXR CHEST(2 VIEWS-NOT PORTABLE) from 11/19/2014 CT CTAC CTA-CHEST from 01/08/2017 CR XR CHEST 2V from 05/09/2020 FINDINGS: The cardiomediastinal silhouette and pulmonary vascularity are within normal limits. The lungs are clear without infiltrates, suspicious nodules, or pleural effusions. Calcified granuloma left lung base. No acute bony findings. IMPRESSION: No change with no acute finding Dictated by: Giovanni Redmond MD 03/04/2021 13:25 Giovanni Redmond MD in [place] 03/04/2021 13:25
--- NOTE | 2021-03-04 12:34 | XR_ITS ---
PROCEDURE: XR SHOULDER RT MIN 2V CLINICAL INDICATION: right shoulder pain COMPARISON: CR SHOU3R [id number]-UNI-3 VIEWS from 06/13/2015 CR SHOU3R DWI-[id number]-HI-UNI-3 VIEWS from 02/26/2016 CR SHOU3R [id number]-UNI-3 VIEWS from 10/01/2016 FINDINGS: Slightly high-riding humeral head with subacromial stenosis. Faint calcification is present inferior to the lateral aspect of the acromion suggesting calcific tendinitis versus a spur of the inferior acromion. No fracture or dislocation. No lytic or blastic change. Minimal osteoarthritis glenohumeral joint. IMPRESSION: Osteoarthritic change with slightly high-riding humeral head, subacromial stenosis and possible calcific tendinitis Dictated by: Giovanni Redmond MD 03/04/2021 13:25 Giovanni Redmond MD in [place] 03/04/2021 13:25
== END ==
PROVIDERS: PCP Emergency Medicine; Visit Provider Orthopaedic Surgery
DX: R07.89 Other chest pain (principal); M25.511 Pain in right shoulder
CPT/HCPCS: 71045; 73030

== ENCOUNTER → 2021-03-31 18:39 | Outpatient (CLI) | payer MEDICARE, MEDICAID, SELFPAY ==
[2021-03-31 20:41] LABS: Amphetamine/Metha Screen,Urine Negative ng/ml (<1000)
[2021-03-31 20:42] LABS: Barbiturates Screen,Urine Negative ng/ml (<200); Benzodiazepines Screen,Urine Positive ng/ml (<200)
[2021-03-31 20:43] LABS: Cannabinoid Screen,Urine Negative ng/ml (<50)
[2021-03-31 20:44] LABS: Cocaine Screen,Urine Negative ng/ml (<300); Methadone Screen,Urine Negative ng/ml (<300)
[2021-03-31 20:45] LABS: Opiate Screen,Urine Negative ng/ml (<300)
[2021-03-31 20:46] LABS: Phencyclidine Screen,Urine Negative ng/ml (<25)
== END ==
PROVIDERS: Visit Provider Emergency Medicine
DX: M51.16 Intervertebral disc disorders with radiculopathy, lumbar region (principal)
CPT/HCPCS: 80305

== ENCOUNTER → 2021-04-08 15:32 | Outpatient (CLI) | payer MEDICARE, MEDICAID, SELFPAY | PROVIDERS: PCP Emergency Medicine; Visit Provider Nurse Practitioner | DX: Z20.822 Contact with and (suspected) exposure to COVID-19 (principal) | CPT/HCPCS: C9803; U0003; U0005 ==

== ENCOUNTER 2021-04-25 18:03 | Emergency (ER) | payer MEDICARE, MEDICAID, SELFPAY ==
[2021-04-25 18:04] VITALS: BP 118/80; PULSE 101; RESP 18; TEMP 36.9; O2SAT 98; BMI 25.8
[2021-04-25 18:32] LABS: Coronavirus 19, PCR Not Detected (NotDetected); Influenza A, PCR Not Detected (NotDetected); Influenza B, PCR Not Detected (NotDetected)
--- NOTE | 2021-04-25 18:38 | HMH.EDGENADL ---
ED Disposition Clinical Impression: Viral upper respiratory infection Disposition: Home, Self-Care Condition on Discharge: Good Instructions: DI for Viral Upper Respiratory Infection -- Adult Additional Instructions: Tylenol or ibuprofen for aches and pains. [id number] cough/cold medications as needed. Rest and drink plenty of fluids. Follow-up with primary care provider next week if not improved. Additional instructions for UPPER RESPIRATORY INFECTION: Return immediately if you have an uncontrollable fever greater than 104 degrees, difficulty breathing or shortness of breath, persistent vomiting, or inability to swallow. Referrals: Adelso Fraga MD [Primary Care Provider] - - Critical Care Critical Care Time: No Attestation: On 04/25/21, the high probability of a clinically significant, sudden or life threatening deterioration of the following system(s) required my full and direct attention, intervention and personal management. The time I documented below is in addition to time spent performing reported procedures but includes the following listed in this critical care notation. Medical Decision Making - César Inquiry Pt receiving controlled substance: No Vital Signs: 04/25/21 18:04 Temperature 98.5 F Temperature Source Oral Pulse Rate [Left Radial] 101 H Respiratory Rate 18 Blood Pressure [Right Arm] 118/80 Blood Pressure Mean [Right Arm] 92 Blood Pressure Source [Right Arm] Automatic Cuff Blood Pressure Position [Right Arm] Sitting 02 Sat by Pulse Oximetry 98 Oxygen Delivery Method Room Air - Lab Data Lab Results 04/25/21 18:15: Group A Strep Rapid Negative 04/25/21 18:15: SARS-CoV-2 (PCR) Not detected, Influenza A Untype (PCR) Not detected, Influenza Type B (PCR) Not detected Orders (Tests/Meds): ORDERS Category Date Time Status Strep Screen Confirmation Stat Micro 04/25/21 18:15 Received - Radiology Data #1 Image(s): Chest Image Reviewed: Yes I reviewed the patient's radiology image, Yes I have reviewed radiologist's interpretation Preliminary Findings: Normal/NAD PROCEDURE INFORMATION: Exam: XR Chest Exam date and time: 04/25/2021 6:44 PM Age: 61 years old Clinical indication: Cough and other: Sore throat; Additional info: Cough sore throat congestion TECHNIQUE: Imaging protocol: XR of the chest. Views: 2 views. COMPARISON: CR XR CHEST AP 03/04/2021 12:41 PM FINDINGS: Lungs: Unremarkable. No consolidation. Pleural spaces: Unremarkable. No pleural effusion. No pneumothorax. Heart/Mediastinum: Unremarkable. No cardiomegaly. Bones/joints: Unremarkable. IMPRESSION: No acute findings. General Adult HPI - General Chief complaint: Upper Respiratory Infection Stated complaint: sore throat cough diarrhea lopez congestion Time Seen by Provider: 04/25/21 18:38 Mode of Arrival: Ambulatory Limitations: No Limitations Description of Symptoms (Recalled from ER Triage Doc. by RN): c/o congestion, sore throat, diarrhea, ear pain, runny nose and no appetite since this morning - History of Present Illness HPI narrative: Since 1 AM she has had cough and congestion in her chest, sore throat with swallowing, rhinorrhea, left ear bothers her. Poor appetite and malaise. No known exposure to any illnesses including COVID-19. She is fully vaccinated and has had a booster against COVID-19. - Related Data Home Medications Medication Instructions Recorded Confirmed cholecalciferol (vitamin D3) 125 5,000 unit PO ONCE 05/25/17 03/31/21 mcg (5,000 unit) capsule duloxetine 60 mg capsule,delayed 60 mg PO QDAY 05/25/17 03/31/21 release isosorbide mononitrate 30 mg 30 mg PO QAM 05/25/17 03/31/21 tablet,extended release 24 hr levocetirizine 5 mg tablet 5 mg PO QHS 05/25/17 03/31/21 celecoxib 200 mg capsule mg PO BID cap 05/10/19 03/31/21 clobetasol 0.05 % topical crea
--- NOTE | 2021-04-25 18:44 | XR_ITS ---
PROCEDURE INFORMATION: Exam: XR Chest Exam date and time: 04/25/2021 6:44 PM Age: 61 years old Clinical indication: Cough and other: Sore throat; Additional info: Cough sore throat congestion TECHNIQUE: Imaging protocol: XR of the chest. Views: 2 views. COMPARISON: CR XR CHEST AP 03/04/2021 12:41 PM FINDINGS: Lungs: Unremarkable. No consolidation. Pleural spaces: Unremarkable. No pleural effusion. No pneumothorax. Heart/Mediastinum: Unremarkable. No cardiomegaly. Bones/joints: Unremarkable. IMPRESSION: No acute findings.
[2021-04-25 19:54] LABS: Strep Scrn Group A (Rapid) Negative (Negative)
[2021-04-25 19:57] VITALS: BP 120/76; PULSE 92; RESP 19; TEMP 36.8; O2SAT 98
== END 2021-04-25 20:02 | disposition home or self-care (01) ==
PROVIDERS: Emergency Provider Emergency Medicine; PCP Emergency Medicine
DX: J06.9 Acute upper respiratory infection, unspecified (principal); J02.9 Acute pharyngitis, unspecified; K21.9 Gastro-esophageal reflux disease without esophagitis; J44.9 Chronic obstructive pulmonary disease, unspecified; E78.5 Hyperlipidemia, unspecified; M81.0 Age-related osteoporosis without current pathological fracture; M79.7 Fibromyalgia; E03.9 Hypothyroidism, unspecified; Z79.899 Other long term (current) drug therapy
CPT/HCPCS: 71046; 87430; 99282; C9803; U0003; U0005

== ENCOUNTER → 2021-06-03 16:00 | Outpatient (CLI) | payer MEDICARE, MEDICAID, SELFPAY ==
[2021-06-03 14:41] LABS: Amphetamine/Metha Screen,Urine Negative ng/ml (<1000)
[2021-06-03 14:42] LABS: Barbiturates Screen,Urine Negative ng/ml (<200); Benzodiazepines Screen,Urine Positive ng/ml (<200)
[2021-06-03 14:43] LABS: Cannabinoid Screen,Urine Negative ng/ml (<50)
[2021-06-03 14:44] LABS: Cocaine Screen,Urine Negative ng/ml (<300); Methadone Screen,Urine Negative ng/ml (<300)
[2021-06-03 14:45] LABS: Opiate Screen,Urine Negative ng/ml (<300)
[2021-06-03 14:47] LABS: Phencyclidine Screen,Urine Negative ng/ml (<25)
== END ==
PROVIDERS: Visit Provider Emergency Medicine
DX: M51.16 Intervertebral disc disorders with radiculopathy, lumbar region (principal)
CPT/HCPCS: 80305

== ENCOUNTER → 2021-08-05 16:32 | Outpatient (CLI) | payer MEDICARE, MEDICAID, SELFPAY ==
[2021-08-05 19:22] LABS: Benzodiazepines Screen,Urine Positive ng/ml (<200)
[2021-08-05 19:23] LABS: Amphetamine/Metha Screen,Urine Negative ng/ml (<1000); Barbiturates Screen,Urine Negative ng/ml (<200)
[2021-08-05 19:24] LABS: Cannabinoid Screen,Urine Negative ng/ml (<50); Cocaine Screen,Urine Negative ng/ml (<300)
[2021-08-05 19:25] LABS: Methadone Screen,Urine Negative ng/ml (<300)
[2021-08-05 19:26] LABS: Opiate Screen,Urine Negative ng/ml (<300); Phencyclidine Screen,Urine Negative ng/ml (<25)
== END ==
PROVIDERS: Visit Provider Emergency Medicine
DX: M51.16 Intervertebral disc disorders with radiculopathy, lumbar region (principal)
CPT/HCPCS: 80305

== ENCOUNTER → 2021-08-11 08:39 | Outpatient (CLI) | payer MEDICARE, MEDICAID, SELFPAY ==
--- NOTE | 2021-08-11 08:43 | XR_ITS ---
FINAL REPORT CLINICAL HISTORY: Lt hand pain around 1st digit x 2 months Nki COMPARISON: May 09, 2020 FINDINGS: LEFT HAND: 3 views of the left hand were obtained. There is no acute fracture or dislocation. There are moderate degenerative change at the 1st carpometacarpal joint. There are mild degenerative changes elsewhere in the hand and wrist. Soft tissues are unremarkable. IMPRESSION: Degenerative changes as above. Stable from prior. Reviewed, Interpreted and Dictated by Bob Zapata III, MD Transcribed by Jeromy Drake Authenticated by Bob Zapata III, MD on 08/11/2021 09:55:26 AM [facility]
== END ==
PROVIDERS: PCP Emergency Medicine; Visit Provider Emergency Medicine
DX: M79.643 Pain in unspecified hand (principal)
CPT/HCPCS: 73130

== ENCOUNTER → 2021-08-15 15:46 | Outpatient (CLI) | payer MEDICARE, MEDICAID, SELFPAY ==
--- NOTE | 2021-08-15 15:50 | MM_ITS ---
PROCEDURE INFORMATION: Exam: MG Bilateral Screening 3D Mammography Exam date and time: 08/15/2021 4:09 PM Age: 61 years old Clinical indication: Screening. A cousin had breast cancer. TECHNIQUE: Imaging protocol: Bilateral Screening tomosynthesis and 2D mammography including computer-aided detection (CAD) when performed. COMPARISON: 1. MG MM DIG SCREENING MAMM BI W/CAD 02/21/2020 3:35 PM 2. MG MM DIG MAMM BI DX W/CAD 01/25/2019 1:08 PM 3. MG DXRT MM Dig mamm DX unilat RT CAD 02/02/2018 1:40 PM 4. MG SCBI MM Dig screening mamm BI w/CAD 01/13/2018 9:16 AM FINDINGS: MAMMOGRAPHY: Breast composition: The breasts are heterogeneously dense, which may obscure small masses. Mass: No suspicious mass. Architectural distortion: None. Calcifications: No suspicious calcifications. Asymmetric density: None. Skin thickening: None. Axillary adenopathy: None. IMPRESSION: No mammographic evidence of malignancy. Annual screening is recommended unless otherwise clinically indicated. ASSESSMENT: BI-RADS Category 1: Negative
== END ==
PROVIDERS: PCP Emergency Medicine; Visit Provider Nurse Practitioner Obstetrics & Gynecology
DX: Z12.31 Encounter for screening mammogram for malignant neoplasm of breast (principal)
CPT/HCPCS: 77063; 77067

== ENCOUNTER → 2021-10-01 06:25 | Outpatient (CLI) | payer MEDICARE, MEDICAID, SELFPAY ==
[2021-09-30 17:43] LABS: Basophils # 0.1 K/mm3 (0-0.2); Basophils % 1.5 % (0.1-2.0); Eosinophils # 0.1 K/mm3 (0.0-0.4); Eosinophils % 1.3 % (0.1-12.0); Hematocrit 41.4 % (37.0-47.0); Hemoglobin 13.6 g/dL (12.2-16.2); Lymphocytes # 4.2 K/mm3 (0.7-4.5); Lymphocytes % 44.1 % (10-50); Mean Corpuscular HGB Conc 32.9 g/dL (31.8-35.4); Mean Corpuscular Hemoglobin 30.1 pg (27.0-31.2); Mean Corpuscular Volume 91.6 fl (81-99); Mean Platelet Volume 8.7 fl (7.4-10.4); Monocytes # 0.7 K/mm3 (0.1-1.0); Monocytes % 7.2 % (1.7-9.3); Neutrophils # 4.4 K/mm3 (1.8-7.8); Platelet Count 368 K/mm3 (142-424); Red Blood Count 4.52 M/mm3 (4.20-5.40); Red Cell Distribution Width 13.4 % (11.5-17.5); White Blood Count 9.6 K/mm3 (4.8-10.8)
[2021-09-30 18:04] LABS: Chloride 100 mmol/L (98-107); Sodium 141 mmol/L (136-145)
[2021-09-30 18:06] LABS: Blood Urea Nitrogen 12 mg/dl (7-17); Estimated Glomerular Filt Rate 56 ml/min (>60); GFR (African American) 68 ML/MIN (>60)
[2021-09-30 18:07] LABS: Alanine Aminotransferase 113 U/L (12-78); Albumin Level 4.6 g/dl (3.5-5.0); Albumin/Globulin Ratio 1.6 (1.1-1.8); Alkaline Phosphatase 137 U/L (38-126); Aspartate Amino Transferase 150 U/L (14-36); Bilirubin,Total 0.5 mg/dl (0.2-1.3); Calcium 9.2 mg/dl (8.4-10.2); Carbon Dioxide 29 mmol/L (22.0-30.0); Chol/HDL Ratio 4.4 (1-3.5); Cholesterol 209 mg/dl (140-200); Globulin 2.9 g/dL (1.3-3.2); Glucose 123 mg/dl (74-100); HDL Cholesterol 47 mg/dl (40-60); Total Protein,Serum 7.5 g/dl (6.3-8.2); Triglycerides 315 mg/dl (30-150); VLDL Cholesterol 63 mg/dL (0-40)
[2021-09-30 18:18] LABS: Direct LDL Cholesterol 96.68 mg/dL (100-129)
[2021-09-30 18:23] LABS: 25-OH Vitamin D, Total 36.5 ng/mL (30-100); Free T4 (Free Thyroxine) 1.02 ng/dl (0.78-2.19)
[2021-09-30 18:37] LABS: Thyroid Stimulating Hormone 4.28 uIU/mL (0.465-4.68)
== END ==
PROVIDERS: PCP Emergency Medicine; Visit Provider Emergency Medicine
DX: E66.3 Overweight (principal); F41.9 Anxiety disorder, unspecified; E55.9 Vitamin D deficiency, unspecified; Z79.899 Other long term (current) drug therapy
CPT/HCPCS: 80053; 80061; 82306; 84439; 84443; 85025

== ENCOUNTER → 2021-10-06 11:02 | Outpatient (CLI) | payer MEDICARE, MEDICAID, SELFPAY ==
[2021-10-06 12:11] LABS: Chol/HDL Ratio 3.9 (1-3.5); Cholesterol 179 mg/dl (140-200); HDL Cholesterol 46 mg/dl (40-60); Triglycerides 202 mg/dl (30-150); VLDL Cholesterol 40 mg/dL (0-40)
[2021-10-06 12:22] LABS: Direct LDL Cholesterol 86.93 mg/dL (100-129)
== END ==
PROVIDERS: PCP Emergency Medicine; Visit Provider Emergency Medicine
DX: R74.8 Abnormal levels of other serum enzymes (principal)
CPT/HCPCS: 36415; 80061

== ENCOUNTER → 2021-10-13 06:54 | Outpatient (CLI) | payer MEDICARE, MEDICAID, SELFPAY ==
[2021-10-13 07:13] LABS: Microscopic, Urine URINE MICROSCOPIC (MICROSCOPIC)
[2021-10-13 07:45] LABS: Appearance,Urine CLEAR (Clear); Bilirubin,Urine Negative (Negative); Blood, Urine Negative (Negative); Color,Urine YELLOW (Yellow); Glucose,Urine (UA) Negative (Negative); Ketones,Urine Negative (Negative); Leukocyte Esterase,Urine Negative (Negative); Nitrate,Urine Negative (Negative); Protein,Urine Negative (Negative); Urobilinogen,Urine 0.2 EU/dl (0.2)
[2021-10-13 07:53] LABS: Creatinine,Urine Random 129 mg/dL (Not Estab.)
[2021-10-13 08:01] LABS: Bacteria,Urine Trace /lpf; Squamous Epithelial Cell,Urine Occasional #/hpf (0-5)
[2021-10-13 08:22] LABS: Chloride 102 mmol/L (98-107); Sodium 143 mmol/L (136-145)
[2021-10-13 08:23] LABS: Potassium 4.9 mmoL/L (3.5-5.1)
[2021-10-13 08:25] LABS: Alanine Aminotransferase 46 U/L (12-78); Albumin Level 4.9 g/dl (3.5-5.0); Albumin/Globulin Ratio 1.6 (1.1-1.8); Alkaline Phosphatase 108 U/L (38-126); Anion Gap 15.9 mEq/L (5-15); Aspartate Amino Transferase 50 U/L (14-36); Bilirubin,Total 0.7 mg/dl (0.2-1.3); Blood Urea Nitrogen 12 mg/dl (7-17); Carbon Dioxide 30 mmol/L (22.0-30.0); Estimated Glomerular Filt Rate 46 ml/min (>60); GFR (African American) 55 ML/MIN (>60); Total Protein,Serum 7.9 g/dl (6.3-8.2)
[2021-10-13 08:26] LABS: Calcium 10.2 mg/dl (8.4-10.2); Glucose 120 mg/dl (74-100)
== END ==
PROVIDERS: PCP Internal Medicine Nephrology; Visit Provider Emergency Medicine
DX: N18.30 Chronic kidney disease, stage 3 unspecified (principal); R80.9 Proteinuria, unspecified
CPT/HCPCS: 36415; 80053; 81001; 82570; 84155

== ENCOUNTER → 2021-10-29 13:45 | Outpatient (CLI) | payer MEDICARE, MEDICAID, SELFPAY ==
[2021-10-29 13:35] LABS: Amphetamine/Metha Screen,Urine Negative ng/ml (<1000); Barbiturates Screen,Urine Negative ng/ml (<200)
[2021-10-29 13:36] LABS: Benzodiazepines Screen,Urine Positive ng/ml (<200); Cannabinoid Screen,Urine Negative ng/ml (<50)
[2021-10-29 13:37] LABS: Cocaine Screen,Urine Negative ng/ml (<300)
[2021-10-29 13:38] LABS: Methadone Screen,Urine Negative ng/ml (<300); Opiate Screen,Urine Negative ng/ml (<300)
[2021-10-29 13:40] LABS: Phencyclidine Screen,Urine Negative ng/ml (<25)
== END ==
PROVIDERS: PCP Emergency Medicine; Visit Provider Emergency Medicine
DX: R10.9 Unspecified abdominal pain (principal); R30.9 Painful micturition, unspecified; M51.16 Intervertebral disc disorders with radiculopathy, lumbar region
CPT/HCPCS: 80305; 87086

== ENCOUNTER 2021-11-01 20:29 | Emergency (ER) | payer MEDICARE, MEDICAID, SELFPAY ==
[2021-11-01 20:30] VITALS: BP 133/79; PULSE 75; RESP 17; TEMP 36.6; O2SAT 100; BMI 25.1
--- NOTE | 2021-11-01 20:35 | PC.NURSE ---
ER speaking with pt at this time
--- NOTE | 2021-11-01 20:38 | HMH.EDGENADL ---
ED Disposition Clinical Impression: Adverse drug effect Qualifiers: Encounter type: initial encounter Qualified Code(s): T50.905A - Adverse effect of unspecified drugs, medicaments and biological substances, initial encounter Disposition: Home, Self-Care Condition on Discharge: Fair Additional Instructions: Stop taking your new medication. Start taking Cymbalta again tomorrow. Follow-up with your primary care physician in the next 3 to 4 days if you do not feel better. Return to the emergency department if you feel worse in any way. Referrals: Adelso Fraga MD [Primary Care Provider] - - Critical Care Critical Care Time: No Attestation: On , the high probability of a clinically significant, sudden or life threatening deterioration of the following system(s) required my full and direct attention, intervention and personal management. The time I documented below is in addition to time spent performing reported procedures but includes the following listed in this critical care notation. Medical Decision Making - César Inquiry Pt receiving controlled substance: No Medical Decision Narrative: The patient's vital signs are normal. She had a recent medication change which could very well be responsible for the patient's symptoms. There is no evidence of anemia on physical examination. There is no edema. There is no fever. The patient can be safely discharged without an extensive work-up in the emergency department with instructions to revert to her original medication regimen and follow-up with her primary care physician next week. General Adult HPI - General Stated complaint: dizzy,nausea, medication change Time Seen by Provider: 11/01/21 20:38 - History of Present Illness HPI narrative: The patient states that her primary care physician stopped Cymbalta and started her on Prozac on . Since then she has been feeling dizzy and nauseated and a lack of appetite. She has no other complaints. - Related Data Home Medications Medication Instructions Recorded Confirmed cholecalciferol (vitamin D3) 125 5,000 unit PO ONCE 05/25/17 10/29/21 mcg (5,000 unit) capsule clobetasol 0.05 % topical cream TOPICAL 05/10/19 10/29/21 prazosin 2 mg capsule PO DAILY cap 05/10/19 10/29/21 dupilumab 300 mg/2 mL subcutaneous 300 mg SQ Q2W 01/29/21 10/29/21 pen injector Previous Rx's Medication Instructions Recorded polyethylene glycol 3350 17 17 g PO DAILY #238 g 11/15/18 gram/dose oral powder diclofenac sodium 1 % topical gel 2 g TOPICAL QID #100 g 05/10/20 fluticasone furoate 200 1 inh INHALATION Q24H #60 each 07/23/20 mcg-vilanterol 25 mcg/dose inhalation powder ofloxacin 0.3 % ear drops 3 drp OTIC DAILY 7 Days #5 ml 08/28/20 albuterol sulfate 0.63 mg/3 mL 0.63 mg INHALATION TID #90 ml 01/07/21 solution for nebulization pravastatin 80 mg tablet See Rx Instructions .ROUTE 03/10/21 .COMPLEX #90 tab metoclopramide HCl 10 mg tablet 10 mg PO TID #90 tab 03/28/21 levothyroxine 50 mcg capsule 50 mcg PO DAILY #90 cap 04/07/21 furosemide 20 mg tablet 20 mg PO DAILY #90 tab 08/01/21 potassium chloride 10 mEq 10 meq PO DAILY #90 tab 08/01/21 tablet,extended release(part/cryst) estradiol 2 mg tablet See Rx Instructions .ROUTE 08/04/21 .COMPLEX #90 tab albuterol sulfate 90 mcg/actuation See Rx Instructions .ROUTE 08/05/21 aerosol inhaler .COMPLEX #9 g diclofenac sodium 1 % topical gel 2 g TOPICAL QID #100 g 08/05/21 lidocaine 5 % topical patch 1 patch TOPICAL DAILY #30 each 08/05/21 tiotropium bromide 2.5 2 puff INHALATION DAILY #4 g 08/20/21 mcg/actuation mist for inhalation meclizine 25 mg tablet 25 mg PO DAILY PRN #30 tab 09/02/21 nystatin 100,000 unit/mL oral 1 ml PO DAILY #60 ml 09/02/21 suspension alprazolam 1 mg tablet 1 mg PO QID PRN #120 tab 09/30/21 gabapentin 300 mg capsule 600 mg PO TID #180 cap 09/30/21 oxycodone-acetaminophen 10 mg-325 1 tab PO QID #120 tab 09/30/21 mg tablet metopro
[2021-11-01 20:54] VITALS: BP 130/80; PULSE 72; RESP 18; TEMP 36.8; O2SAT 99
== END 2021-11-01 20:56 | disposition home or self-care (01) ==
PROVIDERS: Emergency Provider Emergency Medicine; PCP Emergency Medicine
DX: R42 Dizziness and giddiness (principal); T43.225A Adverse effect of selective serotonin reuptake inhibitors, initial encounter; R11.0 Nausea
CPT/HCPCS: 99282

== ENCOUNTER → 2021-11-04 13:36 | Outpatient (CLI) | payer MEDICARE, MEDICAID, SELFPAY ==
[2021-11-04 13:17] LABS: Chloride 103 mmol/L (98-107); Sodium 136 mmol/L (136-145)
[2021-11-04 13:20] LABS: Blood Urea Nitrogen 7 mg/dl (7-17); Carbon Dioxide 24 mmol/L (22.0-30.0); Estimated Glomerular Filt Rate 56 ml/min (>60); GFR (African American) 68 ML/MIN (>60)
[2021-11-04 13:21] LABS: Calcium 9.4 mg/dl (8.4-10.2); Glucose 129 mg/dl (74-100)
== END ==
PROVIDERS: PCP Emergency Medicine; Visit Provider Emergency Medicine
DX: R53.83 Other fatigue (principal)
CPT/HCPCS: 80048

== ENCOUNTER → 2021-11-27 10:09 | Outpatient (CLI) | payer MEDICARE, MEDICAID, SELFPAY ==
[2021-11-27 10:16] LABS: Microscopic, Urine URINE MICROSCOPIC (MICROSCOPIC)
[2021-11-27 10:46] LABS: Basophils # 0.2 K/mm3 (0-0.2); Basophils % 1.8 % (0.1-2.0); Eosinophils # 0.2 K/mm3 (0.0-0.4); Eosinophils % 1.5 % (0.1-12.0); Hematocrit 44.5 % (37.0-47.0); Hemoglobin 14.3 g/dL (12.2-16.2); Lymphocytes # 3.9 K/mm3 (0.7-4.5); Mean Corpuscular HGB Conc 32.2 g/dL (31.8-35.4); Mean Corpuscular Hemoglobin 29.6 pg (27.0-31.2); Mean Platelet Volume 8.2 fl (7.4-10.4); Monocytes # 0.6 K/mm3 (0.1-1.0); Monocytes % 5.5 % (1.7-9.3); Neutrophils % 55.2 % (37.0-80.0); Platelet Count 406 K/mm3 (142-424); Red Blood Count 4.84 M/mm3 (4.20-5.40); Red Cell Distribution Width 13.4 % (11.5-17.5); White Blood Count 10.9 K/mm3 (4.8-10.8)
[2021-11-27 10:51] LABS: Appearance,Urine CLEAR (Clear); Bilirubin,Urine Negative (Negative); Blood, Urine Negative (Negative); Color,Urine YELLOW (Yellow); Glucose,Urine (UA) Negative (Negative); Ketones,Urine Negative (Negative); Leukocyte Esterase,Urine Negative (Negative); Nitrate,Urine Negative (Negative); PH,Urine 5.5 (5.0-8.5); Protein,Urine Negative (Negative); Specific Gravity, Urine 1.015 (1.005-1.030); Urobilinogen,Urine 0.2 EU/dl (0.2)
[2021-11-27 10:59] LABS: Creatinine,Urine Random 126 mg/dL (Not Estab.)
[2021-11-27 11:13] LABS: Bacteria,Urine Trace /lpf; Squamous Epithelial Cell,Urine Occasional #/hpf (0-5)
[2021-11-27 11:33] LABS: Chloride 104 mmol/L (98-107); Potassium 4.6 mmoL/L (3.5-5.1); Sodium 146 mmol/L (136-145)
[2021-11-27 11:34] LABS: Albumin Level 4.4 g/dl (3.5-5.0)
[2021-11-27 11:36] LABS: Anion Gap 15.6 mEq/L (5-15); Blood Urea Nitrogen 6 mg/dl (7-17); Carbon Dioxide 31 mmol/L (22.0-30.0); Estimated Glomerular Filt Rate 50 ml/min (>60); GFR (African American) 61 ML/MIN (>60)
[2021-11-27 11:37] LABS: Calcium 9.9 mg/dl (8.4-10.2); Glucose 131 mg/dl (74-100)
== END ==
PROVIDERS: PCP Emergency Medicine; Visit Provider Internal Medicine Nephrology
DX: N18.30 Chronic kidney disease, stage 3 unspecified (principal); R80.9 Proteinuria, unspecified
CPT/HCPCS: 36415; 80069; 81001; 82570; 84155; 85025

== ENCOUNTER → 2021-12-01 06:49 | Outpatient (CLI) | payer MEDICARE, MEDICAID, SELFPAY ==
[2021-12-01 19:49] LABS: Amphetamine/Metha Screen,Urine Negative ng/ml (<1000)
[2021-12-01 19:50] LABS: Barbiturates Screen,Urine Negative ng/ml (<200); Benzodiazepines Screen,Urine Positive ng/ml (<200)
[2021-12-01 19:51] LABS: Cannabinoid Screen,Urine Negative ng/ml (<50)
[2021-12-01 19:52] LABS: Cocaine Screen,Urine Negative ng/ml (<300); Methadone Screen,Urine Negative ng/ml (<300)
[2021-12-01 19:53] LABS: Opiate Screen,Urine Negative ng/ml (<300); Phencyclidine Screen,Urine Negative ng/ml (<25)
== END ==
PROVIDERS: PCP Emergency Medicine; Visit Provider Emergency Medicine
DX: M51.16 Intervertebral disc disorders with radiculopathy, lumbar region (principal)
CPT/HCPCS: 80305

== ENCOUNTER → 2021-12-18 07:08 | Outpatient (CLI) | payer MEDICARE, MEDICAID, SELFPAY ==
[2021-12-18 08:29] LABS: Erythrocyte Sedimentation Rate 17 mm/hr (0-30)
[2021-12-20 21:12] LABS: Hep A Ab, IgM Negative; Hepatitis B Core Antibody IgM Negative; Hepatitis B Surface Antigen Negative; Hepatitis C Antibody <0.1
== END ==
PROVIDERS: PCP Emergency Medicine; Visit Provider Emergency Medicine
DX: M19.90 Unspecified osteoarthritis, unspecified site (principal); R10.9 Unspecified abdominal pain; Z20.5 Contact with and (suspected) exposure to viral hepatitis
CPT/HCPCS: 36415; 80074; 85651

== ENCOUNTER → 2021-12-29 11:00 | Outpatient (CLI) | payer MEDICARE, MEDICAID, SELFPAY | PROVIDERS: PCP Emergency Medicine; Visit Provider Internal Medicine | DX: Z01.812 Encounter for preprocedural laboratory examination (principal); Z20.822 Contact with and (suspected) exposure to COVID-19; Z13.810 Encounter for screening for upper gastrointestinal disorder | CPT/HCPCS: C9803; U0003; U0005 ==

== ENCOUNTER → 2022-01-21 08:40 | Outpatient (CLI) | payer MEDICARE, MEDICAID, SELFPAY | PROVIDERS: PCP Emergency Medicine; Visit Provider Internal Medicine Gastroenterology | DX: Z01.812 Encounter for preprocedural laboratory examination (principal); Z20.822 Contact with and (suspected) exposure to COVID-19; Z13.810 Encounter for screening for upper gastrointestinal disorder | CPT/HCPCS: C9803; U0003; U0005 ==

== ENCOUNTER → 2022-01-26 07:02 | Outpatient (CLI) | payer MEDICARE, MEDICAID, SELFPAY | PROVIDERS: PCP Emergency Medicine; Visit Provider Internal Medicine | DX: Z01.812 Encounter for preprocedural laboratory examination (principal); Z20.822 Contact with and (suspected) exposure to COVID-19; Z13.810 Encounter for screening for upper gastrointestinal disorder | CPT/HCPCS: C9803; U0003; U0005 ==

== ENCOUNTER 2022-01-28 10:58 | Day surgery (SDC) | payer MEDICARE, MEDICAID, SELFPAY ==
[2022-01-19 11:15] VITALS: BMI 25.8
[2022-01-28 12:16] VITALS: BP 120/77; PULSE 77; RESP 18; TEMP 36.1; O2SAT 100
[2022-01-28 13:52] VITALS: O2SAT 100
--- NOTE | 2022-01-28 14:04 | P.PCN_ITS ---
Procedure: Date: 01/28/22 Patient Date of :: 1960 Procedure Performed:: EGD Indications:: The patient is a 61 year old who presents for EGD evaluation of dysphagia and GERD Performing Provider:: Ventura Wynn MD Referring Provider:: Adelso Fraga MD Sedation:: See RN records Procedure:: The gastroscope was gently passed through the incisoral orifice into the oral cavity and under direct visualization the esophagus was intubated. The endoscope was passed down the esophagus, through the stomach, and into the duodenum. Color, texture, mucosa, and anatomy of the esophagus, stomach, and duodenum were carefully examined with the scope. Findings:: Oropharynx: normal Esophagus: normal. Biopsies obtained distal and mid esophagus. Empiric dilatation performed with 54F bougie dilator EG Junction: measured at 37 cm Cardia: normal Fundus: normal Body: gastritis. Biopsies obtained Antrum: gastritis. Biopsies obtained Duodenal bulb: normal Duodenum (second and third portion): normal Recommendations:: Await pathology results If dysphagia symptom does not improve after esophageal dilatation, consider ba rium esophagram with tablet Complications:: None Estimated blood obtained (mL): 0
[2022-01-28 14:11] VITALS: BP 108/62; PULSE 77; RESP 18; TEMP 36.6; O2SAT 98
--- NOTE | 2022-01-28 14:20 | P.PN_ITS ---
[facility] Medical History Asthma Chronic anxiety COPD (chronic obstructive pulmonary disease) Fibromyalgia GERD (gastroesophageal reflux disease) Hearing loss History of arthritis History of hyperlipidemia History of hypertension History of mitral valve disorder Lumbar disc disease with radiculopathy Migraine Osteoarthritis Osteoporosis Surgical History History of cholecystectomy History of colonoscopy History of esophagogastroduodenoscopy (EGD) History of hysterectomy History of left breast biopsy Family History Other Brain cancer Family history of cancer Family history of diabetes mellitus type II Family history of myocardial infarction Social History (Updated 01/28/22 @ 12:31 by Sonia Welch RN) Smoking Status: Current some day smoker tobacco type: cigarettes packs per day: 1 (occasional) years smoked: 8 second hand exposure: Yes alcohol intake: never substance use type: denies use current occupational status: disabled Travel in the last 8 weeks: None household members: other housing: house lives independently: Yes marital status: single caffeine: Yes do you feel safe at home: Yes victim of physical abuse: No victim of emotional abuse: No victim of sexual abuse: No would you like helpful sources: No [facility] Anesthesia Checklist Patient Identification Patient Identification: Arm Band and Family Structural Data Admitted From: Home Planned Operative Procedure/s: EGD Consent for Planned Operative Procedure(s) Verified: Yes Verified Documents: Surgical Consent and History and Physical NPO Status Verified Time NPO: 00:00 Additional verifications Anesthesia Reactions: No Hx Blood Transfusions: No Cephalosporin Allergy: No Previous Colonoscopy: Yes Airway Assessment C-Spine Mobility Assessed: Yes TMJ Mobility Assessed: Yes Dentition: Partials Neurological Assessment Level of Consciousness: Awake, Alert, Appropriate and Follows Commands Hx Seizures: No Numbness or tingling in extremities: No 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
[2022-01-28 14:21] VITALS: BP 134/46; PULSE 64; RESP 18; O2SAT 100
[2022-01-28 14:31] VITALS: BP 125/75; PULSE 65; RESP 18; O2SAT 100
[2022-01-28 14:41] VITALS: BP 118/70; PULSE 66; RESP 18; O2SAT 100
--- NOTE | 2022-02-16 13:22 | PC.NURSE ---
02/16- left patient msg-returning her call from 02/13. Instructed that BX results were normal and she can follow up with Dr Fraga for further testing.
== END 2022-01-28 14:42 | disposition home or self-care (01) ==
PROVIDERS: PCP Emergency Medicine; Visit Provider Internal Medicine
PROC: 0DJ08ZZ Inspection of Upper Intestinal Tract, Via Natural or Artificial Opening Endoscopic (ICD-10-PCS; CPT 43235; principal; 2022-01-28 13:00)
DX: K21.00 Gastro-esophageal reflux disease with esophagitis, without bleeding (principal); R13.10 Dysphagia, unspecified; K29.70 Gastritis, unspecified, without bleeding; Z72.0 Tobacco use; Z79.899 Other long term (current) drug therapy
CPT/HCPCS: 43239; 43248; 88305

== ENCOUNTER → 2022-01-30 10:51 | Outpatient (CLI) | payer MEDICARE, MEDICAID, SELFPAY ==
[2022-01-30 19:10] LABS: Amphetamine/Metha Screen,Urine Negative ng/ml (<1000)
[2022-01-30 19:11] LABS: Barbiturates Screen,Urine Negative ng/ml (<200)
[2022-01-30 19:12] LABS: Benzodiazepines Screen,Urine Positive ng/ml (<200)
[2022-01-30 19:13] LABS: Cocaine Screen,Urine Negative ng/ml (<300); Methadone Screen,Urine Negative ng/ml (<300)
[2022-01-30 19:14] LABS: Opiate Screen,Urine Negative ng/ml (<300); Phencyclidine Screen,Urine Negative ng/ml (<25)
[2022-01-30 20:41] LABS: Cannabinoid Screen,Urine Negative ng/ml (<50)
== END ==
PROVIDERS: PCP Emergency Medicine; Visit Provider Emergency Medicine
DX: M51.16 Intervertebral disc disorders with radiculopathy, lumbar region (principal)
CPT/HCPCS: 80305

== ENCOUNTER → 2022-03-09 07:06 | Outpatient (CLI) | payer MEDICARE, MEDICAID, SELFPAY ==
[2022-03-09 07:15] LABS: Microscopic, Urine URINE MICROSCOPIC (MICROSCOPIC)
[2022-03-09 08:19] LABS: Appearance,Urine CLEAR (Clear); Basophils # 0.2 K/mm3 (0-0.2); Basophils % 1.2 % (0.1-2.0); Bilirubin,Urine Negative (Negative); Blood, Urine Negative (Negative); Color,Urine YELLOW (Yellow); Eosinophils # 0.2 K/mm3 (0.0-0.4); Eosinophils % 1.3 % (0.1-12.0); Glucose,Urine (UA) Negative (Negative); Hematocrit 43.9 % (37.0-47.0); Hemoglobin 13.9 g/dL (12.2-16.2); Ketones,Urine Negative (Negative); Leukocyte Esterase,Urine TRACE (Negative); Lymphocytes # 7.1 K/mm3 (0.7-4.5); Lymphocytes % 51.5 % (10-50); Mean Corpuscular HGB Conc 31.7 g/dL (31.8-35.4); Mean Corpuscular Hemoglobin 29.2 pg (27.0-31.2); Mean Corpuscular Volume 92.2 fl (81-99); Mean Platelet Volume 8.2 fl (7.4-10.4); Monocytes # 0.9 K/mm3 (0.1-1.0); Monocytes % 6.2 % (1.7-9.3); Neutrophils # 5.4 K/mm3 (1.8-7.8); Neutrophils % 39.7 % (37.0-80.0); Nitrate,Urine Negative (Negative); PH,Urine 6.5 (5.0-8.5); Platelet Count 435 K/mm3 (142-424); Protein,Urine Negative (Negative); Red Blood Count 4.77 M/mm3 (4.20-5.40); Red Cell Distribution Width 13.1 % (11.5-17.5); Specific Gravity, Urine <= 1.005 (1.005-1.030); Urobilinogen,Urine 0.2 EU/dl (0.2); White Blood Count 13.7 K/mm3 (4.8-10.8)
[2022-03-09 08:23] LABS: MANUAL DIFFERENTIAL MANUAL DIFFERENTIAL (MANUAL DIFF)
[2022-03-09 08:50] LABS: Lymphocytes % 44 % (10-50); Monocytes % 6 % (2-9); Neutrophils % 50 % (42-76); Platelet Estimate Slight Increase; RBC Morphology Normal; Total Cells Counted 100
[2022-03-09 09:06] LABS: Alanine Aminotransferase 33 U/L (12-78); Albumin Level 4.8 g/dl (3.5-5.0); Albumin/Globulin Ratio 1.8 (1.1-1.8); Alkaline Phosphatase 119 U/L (38-126); Anion Gap 22.5 mEq/L (5-15); Aspartate Amino Transferase 34 U/L (14-36); Bilirubin,Total 0.4 mg/dl (0.2-1.3); Blood Urea Nitrogen 8 mg/dl (7-17); Calcium 9.9 mg/dl (8.4-10.2); Carbon Dioxide 28 mmol/L (22.0-30.0); Chloride 97 mmol/L (98-107); Chol/HDL Ratio 4.8 (1-3.5); Cholesterol 224 mg/dl (140-200); Estimated Glomerular Filt Rate 50 ml/min (>60); GFR (African American) 61 ML/MIN (>60); Globulin 2.6 g/dL (1.3-3.2); Glucose 113 mg/dl (74-100); HDL Cholesterol 47 mg/dl (40-60); Potassium 4.5 mmoL/L (3.5-5.1); Sodium 143 mmol/L (136-145); Total Protein,Serum 7.4 g/dl (6.3-8.2); Triglycerides 257 mg/dl (30-150); VLDL Cholesterol 51 mg/dL (0-40)
[2022-03-09 09:17] LABS: Direct LDL Cholesterol 120.85 mg/dL (100-129)
[2022-03-09 09:22] LABS: 25-OH Vitamin D, Total 46.2 ng/mL (30-100); Free T4 (Free Thyroxine) 0.97 ng/dl (0.78-2.19)
[2022-03-09 09:31] LABS: WBC,Urine Occasional #/hpf (0-3)
[2022-03-09 09:32] LABS: Bacteria,Urine Trace /lpf; Squamous Epithelial Cell,Urine Occasional #/hpf (0-5)
[2022-03-09 09:37] LABS: Thyroid Stimulating Hormone 4.12 uIU/mL (0.465-4.68)
== END ==
PROVIDERS: PCP Emergency Medicine; Visit Provider Emergency Medicine
DX: R82.90 Unspecified abnormal findings in urine (principal); R53.83 Other fatigue; R35.0 Frequency of micturition; E03.9 Hypothyroidism, unspecified; R07.89 Other chest pain; E55.9 Vitamin D deficiency, unspecified; K59.00 Constipation, unspecified; B95.2 Enterococcus as the cause of diseases classified elsewhere
CPT/HCPCS: 36415; 80053; 80061; 81001; 82306; 84439; 84443; 85007; 85025; 87086; 87088; 87186

== ENCOUNTER 2022-03-10 19:01 | Emergency (ER) | payer MEDICARE, MEDICAID, SELFPAY ==
[2022-03-10 19:29] VITALS: BP 125/76; PULSE 87; RESP 18; TEMP 36.6; O2SAT 100; BMI 27.4
[2022-03-10 19:30] VITALS: BP 113/81; PULSE 72; O2SAT 98
[2022-03-10 19:41] LABS: Coronavirus 19, PCR Not Detected (NotDetected); Influenza A, PCR Not Detected (NotDetected); Influenza B, PCR Not Detected (NotDetected)
[2022-03-10 20:00] VITALS: BP 104/78; PULSE 74; O2SAT 97
--- NOTE | 2022-03-10 20:18 | PC.NURSE ---
Dr. Fraga at
[2022-03-10 20:19] LABS: Strep Scrn Group A (Rapid) Negative (Negative)
--- NOTE | 2022-03-10 20:19 | HMH.EDURI ---
Discharge Plan Disposition Patient Disposition: Home, Self-Care Chief Complaint: Upper Respiratory Infection Prescriptions Prescriptions: No Action cholecalciferol (vitamin D3) 5,000 unit capsule 5,000 unit PO ONCE Dupixent Pen 300 mg/2 mL pen injector 300 mg SQ Q2W levothyroxine 50 mcg tablet 50 mcg PO DAILY meclizine 25 mg tablet 25 mg PO DAILY PRN (Reason: dizziness) Qty: 90 0RF alprazolam 1 mg tablet 1 mg PO QID PRN (Reason: anxiety) Qty: 120 1RF oxycodone-acetaminophen [Percocet] 10-325 mg tablet 1 tab PO QID Qty: 120 0RF metoprolol succinate 25 mg tablet extended release 24 hr 25 mg PO DAILY Rx Instructions: Take 1 tablet by mouth once daily diclofenac sodium 1 % gel 2 g topical QID Rx Instructions: apply to single elbow, wrist or hand; for hand includes palm/fingers/back of hand aspirin 81 mg Capsule 81 mg PO DAILY albuterol sulfate 0.63 mg/3 mL solution for nebulization 0.63 mg INHALATION TID Rx Instructions: J45.998 Asthma omeprazole 40 mg capsule,delayed release(DR/EC) 40 mg PO DAILY ofloxacin 0.3 % drops 3 drp OTIC DAILY Rx Instructions: left ear pravastatin 80 mg tablet 80 mg PO DAILY Rx Instructions: TAKE 1 TABLET BY MOUTH EVERY DAY AT BEDTIME estradiol 2 mg tablet 2 mg PO DAILY Rx Instructions: Take 1 tablet by mouth once daily furosemide 20 mg tablet 20 mg PO DAILY polyethylene glycol 3350 [Miralax] 17 gram/dose powder 17 g PO DAILY loratadine [Claritin] 10 mg tablet 10 mg PO DAILY potassium chloride 10 mEq tablet,ER particles/crystals 10 meq PO DAILY duloxetine [Cymbalta] 60 mg capsule,delayed release(DR/EC) 60 mg PO BID Spiriva Respimat 2.5 mcg/actuation mist 2 puff INHALATION DAILY fluticasone furoate-vilanterol [Breo Ellipta] 200-25 mcg/dose blister with device 1 inh INHALATION Q24H PRN (Reason: .) Referrals Follow up/Referrals: Adelso Fraga MD [Primary Care Provider] - See instructions Clinical Impressions Clinical Impression: Upper respiratory infection Instructions Patient Instructions: DI for Viral Upper Respiratory Infection -- Adult Discharge ED Provider: Adelso Fraga URI/Sore Throat HPI General Chief Complaint: Upper Respiratory Infection Stated Complaint: sore throat, runny nose, lightheaded Time Seen by Provider: 03/10/22 20:05 Mode of Arrival: Ambulatory Source of Information: Patient and Medical Record Limitations: No Limitations Description of Symptoms (Recalled from ER Triage Doc. by RN): Pt c/o cold chills, scratchy throat, sneezing, runny nose, watery eyes and states her tongue is burning for the prior 3 days. History of Present Illness HPI Narrative: uri sx with sore throat w/o rash x 3 days MD Complaint: sore throat and nasal congestion Onset (ago): day(s) Duration: intermittent Severity: moderate Able to tolerate fluids by mouth: Yes Associated symptoms: denies other symptoms Treatments prior to arrival: acetaminophen and ibuprofen Related Data Home Medications Medication Instructions Recorded Confirmed cholecalciferol (vitamin D3) 125 5,000 unit PO ONCE Supplement 05/25/17 01/30/22 mcg (5,000 unit) capsule dupilumab 300 mg/2 mL subcutaneous 300 mg SQ Q2W excema 01/29/21 01/30/22 pen injector (Dupixent) levothyroxine 50 mcg tablet 50 mcg PO DAILY hypothyroid 12/01/21 01/30/22 albuterol sulfate 0.63 mg/3 mL 0.63 mg inhalation TID COPD 12/30/21 01/30/22 solution for nebulization duloxetine 60 mg capsule,delayed 60 mg PO BID Depression 12/30/21 01/30/22 release (Cymbalta) estradiol 2 mg tablet 2 mg PO DAILY hormones 12/30/21 01/30/22 fluticasone furoate 200 1 inh inhalation Q24H PRN . 12/30/21 01/30/22 mcg-vilanterol 25 mcg/dose inhalation powder (Breo Ellipta) furosemide 20 mg tablet 20 mg PO DAILY Fluid 12/30/21 01/30/22 loratadine 10 mg tablet (Claritin
[2022-03-10 20:30] VITALS: BP 109/78; PULSE 75; O2SAT 96
[2022-03-10 21:58] VITALS: BP 109/78; PULSE 75; RESP 18; TEMP 36.6; O2SAT 99
--- NOTE | 2022-03-10 22:13 | PC.NURSE ---
Called pt with covid/flu results at this time
[2022-03-10 22:20] LABS: Adenovirus,PCR Not Detected (NotDetected); Bordetella Pertussis Not Detected (NotDetected); Chlamydophila Pneumoniae, PCR Not Detected (NotDetected); Coronavirus 19, PCR Not Detected (NotDetected); Coronavirus 229E Not Detected (NotDetected); Coronavirus NL63 Not Detected (NotDetected); Coronavirus OC43 Not Detected (NotDetected); Coronovirus HKU1,PCR Not Detected (NotDetected); Human Metapneumovirus Not Detected (NotDetected); Influenza A, PCR Not Detected (NotDetected); Influenza AH1, 2009 Not Detected (NotDetected); Influenza AH1, PCR Not Detected (NotDetected); Influenza AH3,PCR Not Detected (NotDetected); Influenza B, PCR Not Detected (NotDetected); Mycoplasma Pneumoniae, PCR Not Detected (NotDetected); Parainfluenza 1, PCR Not Detected (NotDetected); Parainfluenza 2, PCR Not Detected (NotDetected); Parainfluenza 3, PCR Not Detected (NotDetected); Parainfluenza 4, PCR Not Detected (NotDetected); Respiratory Syncytial Virus Not Detected (NotDetected); Rhinovirus/Enterovirus Not Detected (NotDetected)
== END 2022-03-10 22:12 | disposition home or self-care (01) ==
PROVIDERS: Emergency Medicine; Emergency Provider Emergency Medicine; PCP Emergency Medicine
DX: J06.9 Acute upper respiratory infection, unspecified (principal); Z79.899 Other long term (current) drug therapy; Z79.82 Long term (current) use of aspirin; Z88.6 Allergy status to analgesic agent; J44.9 Chronic obstructive pulmonary disease, unspecified; K21.9 Gastro-esophageal reflux disease without esophagitis; I10 Essential (primary) hypertension; E78.5 Hyperlipidemia, unspecified; M19.90 Unspecified osteoarthritis, unspecified site; M81.0 Age-related osteoporosis without current pathological fracture; M51.16 Intervertebral disc disorders with radiculopathy, lumbar region; F41.9 Anxiety disorder, unspecified
CPT/HCPCS: 87430; 87581; 87632; 87798; 99282; C9803; U0003; U0005

== ENCOUNTER 2022-03-22 21:31 | Emergency (ER) | payer MEDICARE, MEDICAID, SELFPAY ==
[2022-03-22 21:31] VITALS: BP 169/93; PULSE 71; RESP 16; TEMP 36.6; O2SAT 99; BMI 24.2
--- NOTE | 2022-03-22 21:34 | XR_ITS ---
PROCEDURE INFORMATION: Exam: XR Chest Exam date and time: 03/22/2022 10:10 PM Age: 62 years old Clinical indication: Pain; Chest pressure; Additional info: Cp TECHNIQUE: Imaging protocol: Radiologic exam of the chest. Views: 2 views. COMPARISON: CR XR CHEST 2V 04/25/2021 6:51 PM FINDINGS: Lungs: 5 mm granulomatous calcification in the left base unchanged. Low lung volumes. Question slight peribronchial thickening which may represent changes of bronchitis. Pulmonary vasculature grossly normal. No gross pulmonary infiltrates or edema pattern. Pleural spaces: No pleural effusion. No pneumothorax. Heart/Mediastinum: Heart size normal. No tracheal/mediastinal shift. Bones/joints: No acute osseous abnormalities are identified. Intraperitoneal space: Right upper quadrant surgical clips suggest prior cholecystectomy. IMPRESSION: 1. No definite acute process. 2. Question mild peribronchial thickening which may represent changes of bronchitis. 3. Low lung volumes.
--- NOTE | 2022-03-22 21:34 | ECG_ITS ---
APPROVED REPORT Exam: Resting ECG HR:70 bpm ECG Measurements Heart Rate 70 AXES RI 152 P 73 QRSd 126 QRS 76 QT 411 T 35 QTc 431 Conclusion SINUS RHYTHM RIGHT BUNDLE BRANCH BLOCK [120+ ms QRS DURATION, UPRIGHT V1, 40+ ms S IN I/aVL/V4/V5/V6] ABNORMAL ECG UNCONFIRMED REPORT Electronically signed by : Joni Robertson MD 03/23/2022 21:10:53
[2022-03-22 22:00] VITALS: BP 130/80; PULSE 66; O2SAT 99
[2022-03-22 22:16] LABS: Alanine Aminotransferase 31 U/L (12-78); Albumin Level 4.4 g/dl (3.5-5.0); Albumin/Globulin Ratio 1.5 (1.1-1.8); Alkaline Phosphatase 121 U/L (38-126); Anion Gap 17.2 mEq/L (5-15); Aspartate Amino Transferase 38 U/L (14-36); Bilirubin,Total 0.2 mg/dl (0.2-1.3); Blood Urea Nitrogen 11 mg/dl (7-17); Calcium 8.9 mg/dl (8.4-10.2); Carbon Dioxide 32 mmol/L (22.0-30.0); Chloride 93 mmol/L (98-107); Creatinine Clearance Estimated 63 mL/min (50-200); Estimated Glomerular Filt Rate 56 ml/min (>60); GFR (African American) 68 ML/MIN (>60); Globulin 2.9 g/dL (1.3-3.2); Glucose 123 mg/dl (74-100); Potassium 3.2 mmoL/L (3.5-5.1); Sodium 139 mmol/L (136-145); Total Protein,Serum 7.3 g/dl (6.3-8.2)
[2022-03-22 22:30] VITALS: BP 114/77; PULSE 72; O2SAT 98
[2022-03-22 22:32] LABS: Troponin I < 0.01 ng/ml (0.00-0.034)
[2022-03-22 22:35] LABS: Basophils # 0.1 K/mm3 (0-0.2); Basophils % 0.9 % (0.1-2.0); Eosinophils # 0.1 K/mm3 (0.0-0.4); Hematocrit 38.8 % (37.0-47.0); Hemoglobin 12.5 g/dL (12.2-16.2); Lymphocytes # 5.1 K/mm3 (0.7-4.5); Lymphocytes % 41.8 % (10-50); Mean Corpuscular HGB Conc 32.3 g/dL (31.8-35.4); Mean Corpuscular Hemoglobin 29.2 pg (27.0-31.2); Mean Corpuscular Volume 90.5 fl (81-99); Mean Platelet Volume 8.3 fl (7.4-10.4); Monocytes # 0.8 K/mm3 (0.1-1.0); Monocytes % 6.5 % (1.7-9.3); Neutrophils % 49.8 % (37.0-80.0); Platelet Count 364 K/mm3 (142-424); Red Blood Count 4.29 M/mm3 (4.20-5.40); Red Cell Distribution Width 13.2 % (11.5-17.5); White Blood Count 12.1 K/mm3 (4.8-10.8)
--- NOTE | 2022-03-22 23:02 | HMH.EDCP ---
Discharge Plan Disposition Patient Disposition: Home, Self-Care Chief Complaint: Chest Pain Prescriptions Prescriptions: No Action cholecalciferol (vitamin D3) 5,000 unit capsule 5,000 unit PO ONCE Dupixent Pen 300 mg/2 mL pen injector 300 mg SQ Q2W levothyroxine 50 mcg tablet 50 mcg PO DAILY meclizine 25 mg tablet 25 mg PO DAILY PRN (Reason: dizziness) Qty: 90 0RF alprazolam 1 mg tablet 1 mg PO QID PRN (Reason: anxiety) Qty: 120 1RF oxycodone-acetaminophen [Percocet] 10-325 mg tablet 1 tab PO QID Qty: 120 0RF metoprolol succinate 25 mg tablet extended release 24 hr 25 mg PO DAILY Rx Instructions: Take 1 tablet by mouth once daily diclofenac sodium 1 % gel 2 g topical QID Rx Instructions: apply to single elbow, wrist or hand; for hand includes palm/fingers/back of hand aspirin 81 mg Capsule 81 mg PO DAILY albuterol sulfate 0.63 mg/3 mL solution for nebulization 0.63 mg INHALATION TID Rx Instructions: J45.998 Asthma omeprazole 40 mg capsule,delayed release(DR/EC) 40 mg PO DAILY ofloxacin 0.3 % drops 3 drp OTIC DAILY Rx Instructions: left ear pravastatin 80 mg tablet 80 mg PO DAILY Rx Instructions: TAKE 1 TABLET BY MOUTH EVERY DAY AT BEDTIME estradiol 2 mg tablet 2 mg PO DAILY Rx Instructions: Take 1 tablet by mouth once daily furosemide 20 mg tablet 20 mg PO DAILY polyethylene glycol 3350 [Miralax] 17 gram/dose powder 17 g PO DAILY loratadine [Claritin] 10 mg tablet 10 mg PO DAILY potassium chloride 10 mEq tablet,ER particles/crystals 10 meq PO DAILY duloxetine [Cymbalta] 60 mg capsule,delayed release(DR/EC) 60 mg PO BID Spiriva Respimat 2.5 mcg/actuation mist 2 puff INHALATION DAILY fluticasone furoate-vilanterol [Breo Ellipta] 200-25 mcg/dose blister with device 1 inh INHALATION Q24H PRN (Reason: .) Referrals Follow up/Referrals: Provider,MD Tia [Primary Care Provider] - See instructions Kiko Gunter MD [Staff Physician] - See instructions Clinical Impressions Clinical Impression: Chest pain, RBBB Instructions Patient Instructions: DI for Chest Pain Discharge ED Provider: Adelso Fraga Chest Pain HPI General Chief Complaint: Chest Pain Stated Complaint: chest pain Time Seen by Provider: 03/22/22 23:02 Mode of Arrival: Ambulatory Source of Information: Patient and Medical Record Limitations: No Limitations Description of Symptoms (Recalled from ER Triage Doc. by RN): pt c/o lt side chest pain radiating down lt arm that started 1 hour prior History of Present Illness HPI narrative: acute onset of lt sided chest pain lasted about 1 hr and now resolved MD complaint: chest pain indicative of cardiac Onset (ago): hour(s) Duration: now resolved Activity at onset: during rest Pain location: left chest Severity: moderate Quality: sharp Pain radiation: LUE Risk Factors for CAD: Hypertension and Family Hx of CAD Treatments prior to or on arrival for Cardiac Chest Pain: none SHIVA Score for Non-Stemi Age of Patient: 60-69 years old Heart Rate: 50-69 bpm Systolic Blood Pressure: 120-139 mmhg Serum Creatinine: 0.80-1.19 mg/dl CHF Killip Class: I-No CHF Other Risk Factors: None Non-Stemi Risk Score: 102 Related Data On Oral Contraceptives: No Home Medications Medication Instructions Recorded Confirmed cholecalciferol (vitamin D3) 125 5,000 unit PO ONCE Supplement 05/25/17 01/30/22 mcg (5,000 unit) capsule dupilumab 300 mg/2 mL subcutaneous 300 mg SQ Q2W excema 01/29/21 01/30/22 pen injector (Dupixent) levothyroxine 50 mcg tablet 50 mcg PO DAILY hypothyroid 12/01/21 01/30/22 albuterol sulfate 0.63 mg/3 mL 0.63 mg inhalation TID COPD 12/30/21 01/30/22 solution for nebulization duloxetine 60 mg capsule,delayed 60 mg PO BID Depression 12/30/21 01/30/22 release (Cymbalta) estradiol 2 mg tablet 2 mg PO
[2022-03-22 23:09] VITALS: BP 115/75; PULSE 73; RESP 18; TEMP 36.6; O2SAT 99
== END 2022-03-22 23:13 | disposition home or self-care (01) ==
PROVIDERS: Emergency Provider Emergency Medicine
DX: R07.9 Chest pain, unspecified (principal); M54.16 Radiculopathy, lumbar region; M79.602 Pain in left arm; I10 Essential (primary) hypertension; I45.10 Unspecified right bundle-branch block; I05.9 Rheumatic mitral valve disease, unspecified; R01.1 Cardiac murmur, unspecified; K21.9 Gastro-esophageal reflux disease without esophagitis; E78.5 Hyperlipidemia, unspecified; E11.9 Type 2 diabetes mellitus without complications; M81.0 Age-related osteoporosis without current pathological fracture; M79.7 Fibromyalgia; M19.90 Unspecified osteoarthritis, unspecified site; G43.909 Migraine, unspecified, not intractable, without status migrainosus; J44.9 Chronic obstructive pulmonary disease, unspecified; F41.9 Anxiety disorder, unspecified; F17.210 Nicotine dependence, cigarettes, uncomplicated; Z79.51 Long term (current) use of inhaled steroids; Z79.82 Long term (current) use of aspirin; Z79.899 Other long term (current) drug therapy; Z88.5 Allergy status to narcotic agent; Z82.49 Family history of ischemic heart disease and other diseases of the circulatory system; Z83.3 Family history of diabetes mellitus; Z80.9 Family history of malignant neoplasm, unspecified
CPT/HCPCS: 71046; 80053; 84484; 85025; 93005; 96360; 99285

== ENCOUNTER → 2022-03-27 16:39 | Outpatient (CLI) | payer MEDICARE, MEDICAID, SELFPAY ==
[2022-03-27 16:15] LABS: Benzodiazepines Screen,Urine Positive ng/ml (<200)
[2022-03-27 16:16] LABS: Amphetamine/Metha Screen,Urine Negative ng/ml (<1000); Barbiturates Screen,Urine Negative ng/ml (<200)
[2022-03-27 16:17] LABS: Cannabinoid Screen,Urine Negative ng/ml (<50)
[2022-03-27 16:18] LABS: Cocaine Screen,Urine Negative ng/ml (<300); Methadone Screen,Urine Negative ng/ml (<300)
[2022-03-27 16:19] LABS: Opiate Screen,Urine Negative ng/ml (<300)
[2022-03-27 16:20] LABS: Phencyclidine Screen,Urine Negative ng/ml (<25)
== END ==
PROVIDERS: PCP Emergency Medicine; Visit Provider Emergency Medicine
DX: M51.16 Intervertebral disc disorders with radiculopathy, lumbar region (principal)
CPT/HCPCS: 80305

== ENCOUNTER → 2022-05-04 06:58 | Outpatient (CLI) | payer MEDICARE, MEDICAID, SELFPAY ==
[2022-05-04 07:10] LABS: Microscopic, Urine URINE MICROSCOPIC (MICROSCOPIC)
--- NOTE | 2022-05-04 07:23 | XR_ITS ---
FINAL REPORT CLINICAL HISTORY: shoulder pain COMPARISON: March 04, 2021 FINDINGS: RIGHT SHOULDER Three views demonstrate no acute fracture or dislocation. There are mild degenerative changes of the acromioclavicular and glenohumeral joints. The visualized bony structures are well aligned. There is a small calcification adjacent to the posterior glenoid which is worrisome for a small loose body. IMPRESSION: Degenerative change with no acute bony abnormality. Reviewed, Interpreted and Dictated by Bob Zapata III, MD Transcribed by Lorie David Authenticated and [facility]
[2022-05-04 07:27] LABS: Appearance,Urine CLEAR (Clear); Bilirubin,Urine Negative (Negative); Blood, Urine Negative (Negative); Color,Urine YELLOW (Yellow); Glucose,Urine (UA) Negative (Negative); Ketones,Urine Negative (Negative); Leukocyte Esterase,Urine Negative (Negative); Nitrate,Urine Negative (Negative); PH,Urine 6.5 (5.0-8.5); Protein,Urine Negative (Negative); Specific Gravity, Urine <= 1.005 (1.005-1.030); Urobilinogen,Urine 0.2 EU/dl (0.2)
[2022-05-04 07:40] LABS: Basophils # 0.1 K/mm3 (0-0.2); Basophils % 1.1 % (0.1-2.0); Eosinophils # 0.1 K/mm3 (0.0-0.4); Eosinophils % 1.1 % (0.1-12.0); Hemoglobin 12.7 g/dL (12.2-16.2); Lymphocytes # 4.3 K/mm3 (0.7-4.5); Lymphocytes % 40.6 % (10-50); Mean Corpuscular HGB Conc 32.7 g/dL (31.8-35.4); Mean Corpuscular Hemoglobin 29.4 pg (27.0-31.2); Mean Corpuscular Volume 90.1 fl (81-99); Mean Platelet Volume 8.3 fl (7.4-10.4); Monocytes # 0.6 K/mm3 (0.1-1.0); Monocytes % 5.3 % (1.7-9.3); Neutrophils # 5.5 K/mm3 (1.8-7.8); Neutrophils % 51.8 % (37.0-80.0); Platelet Count 390 K/mm3 (142-424); Red Blood Count 4.33 M/mm3 (4.20-5.40); Red Cell Distribution Width 13.2 % (11.5-17.5); White Blood Count 10.6 K/mm3 (4.8-10.8)
[2022-05-04 07:46] LABS: Bacteria,Urine Trace /lpf
[2022-05-04 08:11] LABS: Creatinine,Urine Random 62 mg/dL (Not Estab.)
[2022-05-04 08:17] LABS: Albumin Level 4.3 g/dl (3.5-5.0); Anion Gap 7.7 mEq/L (5-15); Blood Urea Nitrogen 5 mg/dl (7-17); Calcium 8.7 mg/dl (8.4-10.2); Carbon Dioxide 30 mmol/L (22.0-30.0); Chloride 103 mmol/L (98-107); Estimated Glomerular Filt Rate 63 ml/min (>60); GFR (African American) 77 ML/MIN (>60); Glucose 98 mg/dl (74-100); Phosphorous 3.7 mg/dl (2.5-4.5); Potassium 3.7 mmoL/L (3.5-5.1); Sodium 137 mmol/L (136-145)
[2022-05-04 08:30] LABS: Intact Parathyroid Hormone 181.7 pg/mL (7.5-53.5)
[2022-05-04 08:35] LABS: 25-OH Vitamin D, Total 31.6 ng/mL (30-100)
== END ==
PROVIDERS: PCP Emergency Medicine; Referring Provider Internal Medicine Nephrology; Visit Provider Orthopaedic Surgery
DX: N18.30 Chronic kidney disease, stage 3 unspecified (principal); R80.9 Proteinuria, unspecified; M25.511 Pain in right shoulder
CPT/HCPCS: 36415; 73030; 80069; 81001; 82306; 82570; 83970; 84155; 85025

== ENCOUNTER → 2022-05-04 14:24 | Outpatient (POV) | payer MEDICARE, MEDICAID, SELFPAY | PROVIDERS: Visit Provider Internal Medicine Nephrology | DX: Z00.00 Encounter for general adult medical examination without abnormal findings (principal) ==

== ENCOUNTER → 2022-05-12 13:36 | Outpatient (POV) | payer MEDICARE, MEDICAID, SELFPAY | PROVIDERS: Visit Provider Dermatology | DX: Z00.00 Encounter for general adult medical examination without abnormal findings (principal) ==

== ENCOUNTER → 2022-06-24 16:24 | Outpatient (CLI) | payer MEDICARE, MEDICAID, SELFPAY ==
[2022-06-24 16:22] LABS: Amphetamine/Metha Screen,Urine Negative ng/ml (<1000); Barbiturates Screen,Urine Negative ng/ml (<200)
[2022-06-24 16:23] LABS: Benzodiazepines Screen,Urine Positive ng/ml (<200)
[2022-06-24 16:24] LABS: Cannabinoid Screen,Urine Negative ng/ml (<50); Cocaine Screen,Urine Negative ng/ml (<300)
[2022-06-24 16:25] LABS: Methadone Screen,Urine Negative ng/ml (<300)
[2022-06-24 16:26] LABS: Opiate Screen,Urine Positive ng/ml (<300); Phencyclidine Screen,Urine Negative ng/ml (<25)
== END ==
PROVIDERS: PCP Emergency Medicine; Visit Provider Emergency Medicine
DX: M51.16 Intervertebral disc disorders with radiculopathy, lumbar region (principal)
CPT/HCPCS: 80305

== ENCOUNTER → 2022-07-31 14:23 | Outpatient (POV) | payer MEDICARE, MEDICAID, SELFPAY | PROVIDERS: Visit Provider Dermatology | DX: Z00.00 Encounter for general adult medical examination without abnormal findings (principal) ==

== ENCOUNTER → 2022-10-13 18:52 | Outpatient (CLI) | payer MEDICARE, MEDICAID, SELFPAY ==
[2022-10-13 20:33] LABS: Amphetamine/Metha Screen,Urine Negative ng/ml (<1000); Barbiturates Screen,Urine Negative ng/ml (<200)
[2022-10-13 20:34] LABS: Benzodiazepines Screen,Urine Positive ng/ml (<200); Cannabinoid Screen,Urine Negative ng/ml (<50)
[2022-10-13 20:35] LABS: Cocaine Screen,Urine Negative ng/ml (<300)
[2022-10-13 20:36] LABS: Methadone Screen,Urine Negative ng/ml (<300); Opiate Screen,Urine Negative ng/ml (<300)
[2022-10-13 20:37] LABS: Phencyclidine Screen,Urine Negative ng/ml (<25)
== END ==
PROVIDERS: PCP Emergency Medicine; Visit Provider Emergency Medicine
DX: M51.16 Intervertebral disc disorders with radiculopathy, lumbar region (principal)
CPT/HCPCS: 80305

== ENCOUNTER → 2022-11-06 12:25 | Outpatient (CLI) | payer MEDICARE, MEDICAID, SELFPAY ==
--- NOTE | 2022-11-06 13:19 | CT_ITS ---
FINAL REPORT TECHNIQUE: Axial CT images of the chest were obtained without contrast. Low-dose protocol was utilized. This study was performed with techniques to keep radiation doses as low as reasonably achievable (ALARA). Individualized dose reduction techniques using automated exposure control or adjustment of mA and/or kV according to the patient's size were employed. CLINICAL HISTORY: lung cancer screening 1-2 cig/day for 3 years COMPARISON: None FINDINGS: CT CHEST WITHOUT, LOW DOSE SCREENING CT Di Vol: 2.90 mGy DLP: 96.38 mGy*cm There is no axillary, mediastinal, or hilar adenopathy. The heart size is normal. There is no pleural or pericardial effusion. The lung windows show a 2 mm lateral right upper lobe nodule seen on image 24 and an 4 mm anterior right lower lobe nodule seen on image 50. There is a calcified granuloma in the left lower lobe. Limited images of the upper abdomen demonstrate no acute findings. IMPRESSION: Right lung nodules as above. LR Category 2: 12 month follow-up low-dose chest CT is recommended. Reviewed, Interpreted and Dictated by Bob Zapata III, MD Transcribed by Farhana Hollis Authenticated and [facility]
--- NOTE | 2022-11-06 13:19 | MM_ITS ---
PROCEDURE INFORMATION: Exam: MG Bilateral Screening 3D Mammography Exam date and time: 11/06/2022 1:17 PM Age: 62 years old Clinical indication: Screening mammogram. Family history of breast cancer TECHNIQUE: Imaging protocol: Bilateral Screening tomosynthesis and 2D mammography including computer-aided detection (CAD) when performed. COMPARISON: 1. MG MM DIG SCREENING MAMM BI W/CAD 08/15/2021 4:09 PM 2. MG MM DIG SCREENING MAMM BI W/CAD 02/21/2020 3:35 PM 3. MG MM DIG MAMM BI DX W/CAD 01/25/2019 1:08 PM 4. MG DXRT MM Dig mamm DX unilat RT CAD 02/02/2018 1:40 PM FINDINGS: MAMMOGRAPHY: Breast composition: The breast is heterogeneously dense, which may obscure small masses. Mass: None. Architectural distortion: No new or suspicious architectural distortion. Calcifications: No new or suspicious calcifications are present Asymmetric density: No new or suspicious asymmetric density is present Skin thickening: None. Axillary adenopathy: None. IMPRESSION: No mammographic evidence of malignancy. Recommend annual screening mammography unless otherwise clinically indicated. ASSESSMENT: BI-RADS category 1: Negative
[2022-11-06 14:19] LABS: Basophils # 0.1 K/mm3 (0-0.2); Basophils % 0.9 % (0.1-2.0); Eosinophils # 0.1 K/mm3 (0.0-0.4); Hematocrit 41.8 % (37.0-47.0); Hemoglobin 13.2 g/dL (12.2-16.2); Lymphocytes # 5.6 K/mm3 (0.7-4.5); Lymphocytes % 48.4 % (10-50); Mean Corpuscular HGB Conc 31.7 g/dL (31.8-35.4); Mean Corpuscular Hemoglobin 28.9 pg (27.0-31.2); Mean Corpuscular Volume 91.3 fl (81-99); Mean Platelet Volume 7.9 fl (7.4-10.4); Monocytes # 0.8 K/mm3 (0.1-1.0); Monocytes % 6.5 % (1.7-9.3); Neutrophils % 43.2 % (37.0-80.0); Platelet Count 350 K/mm3 (142-424); Red Blood Count 4.58 M/mm3 (4.20-5.40); Red Cell Distribution Width 13.4 % (11.5-17.5); White Blood Count 11.6 K/mm3 (4.8-10.8)
[2022-11-06 14:46] LABS: Alanine Aminotransferase 40 U/L (12-78); Albumin Level 4.8 g/dl (3.5-5.0); Albumin/Globulin Ratio 1.7 (1.1-1.8); Alkaline Phosphatase 108 U/L (38-126); Anion Gap 13.6 mEq/L (5-15); Aspartate Amino Transferase 37 U/L (14-36); Bilirubin,Total 0.2 mg/dl (0.2-1.3); Blood Urea Nitrogen 16 mg/dl (7-17); Calcium 9.6 mg/dl (8.4-10.2); Carbon Dioxide 31 mmol/L (22.0-30.0); Chloride 101 mmol/L (98-107); Chol/HDL Ratio 4.4 (1-3.5); Cholesterol 229 mg/dl (140-200); Estimated Glomerular Filt Rate 42 ml/min (>60); GFR (African American) 50 ML/MIN (>60); Globulin 2.8 g/dL (1.3-3.2); Glucose 102 mg/dl (74-100); HDL Cholesterol 52 mg/dl (40-60); Potassium 4.6 mmoL/L (3.5-5.1); Sodium 141 mmol/L (136-145); Total Protein,Serum 7.6 g/dl (6.3-8.2)
[2022-11-06 14:57] LABS: Direct LDL Cholesterol 96.76 mg/dL (100-129)
[2022-11-06 14:59] LABS: 25-OH Vitamin D, Total 36.5 ng/mL (30-100)
[2022-11-06 15:01] LABS: Free T4 (Free Thyroxine) 0.75 ng/dl (0.78-2.19); Triglycerides 427 mg/dl (30-150)
[2022-11-06 15:19] LABS: Thyroid Stimulating Hormone 5.49 uIU/mL (0.465-4.68)
== END ==
PROVIDERS: PCP Emergency Medicine; Visit Provider Physician Assistant
DX: E78.5 Hyperlipidemia, unspecified (principal); I11.9 Hypertensive heart disease without heart failure; I20.8 Other forms of angina pectoris; R06.00 Dyspnea, unspecified; R07.9 Chest pain, unspecified; R94.31 Abnormal electrocardiogram [ECG] [EKG]; Z87.891 Personal history of nicotine dependence; Z12.31 Encounter for screening mammogram for malignant neoplasm of breast; E78.2 Mixed hyperlipidemia; N28.9 Disorder of kidney and ureter, unspecified; R07.89 Other chest pain; E55.9 Vitamin D deficiency, unspecified; R53.83 Other fatigue; E03.9 Hypothyroidism, unspecified; K59.00 Constipation, unspecified; Z12.2 Encounter for screening for malignant neoplasm of respiratory organs
CPT/HCPCS: 36415; 71271; 77063; 77067; 80053; 80061; 82306; 84439; 84443; 85025; 93306

== ENCOUNTER → 2022-12-16 23:37 | Outpatient (CLI) | payer MEDICARE, MEDICAID, SELFPAY ==
[2022-12-16 18:19] LABS: Adenovirus,PCR Not Detected (NotDetected); Bordetella Pertussis Not Detected (NotDetected); Chlamydophila Pneumoniae, PCR Not Detected (NotDetected); Coronavirus 19, PCR Not Detected (NotDetected); Coronavirus 229E Not Detected (NotDetected); Coronavirus NL63 Not Detected (NotDetected); Coronavirus OC43 Not Detected (NotDetected); Coronovirus HKU1,PCR Not Detected (NotDetected); Human Metapneumovirus Not Detected (NotDetected); Influenza A, PCR Not Detected (NotDetected); Influenza AH1, 2009 Not Detected (NotDetected); Influenza AH1, PCR Not Detected (NotDetected); Influenza AH3,PCR Not Detected (NotDetected); Influenza B, PCR Not Detected (NotDetected); Mycoplasma Pneumoniae, PCR Not Detected (NotDetected); Parainfluenza 1, PCR Not Detected (NotDetected); Parainfluenza 2, PCR Not Detected (NotDetected); Parainfluenza 3, PCR Not Detected (NotDetected); Parainfluenza 4, PCR Not Detected (NotDetected); Respiratory Syncytial Virus Not Detected (NotDetected); Rhinovirus/Enterovirus Not Detected (NotDetected)
== END ==
LOC: LAB.DROPOF 23:38
PROVIDERS: PCP Emergency Medicine; Visit Provider Emergency Medicine
DX: I10 Essential (primary) hypertension (principal); R09.89 Other specified symptoms and signs involving the circulatory and respiratory systems; J02.9 Acute pharyngitis, unspecified; H92.20 Otorrhagia, unspecified ear; J44.9 Chronic obstructive pulmonary disease, unspecified
CPT/HCPCS: 87581; 87632; 87798

== ENCOUNTER → 2023-01-06 12:00 | Outpatient (CLI) | payer MEDICARE, MEDICAID, SELFPAY ==
[2023-01-06 19:13] LABS: Amphetamine/Metha Screen,Urine Negative ng/ml (<1000)
[2023-01-06 19:14] LABS: Barbiturates Screen,Urine Negative ng/ml (<200)
[2023-01-06 19:15] LABS: Benzodiazepines Screen,Urine Positive ng/ml (<200); Cannabinoid Screen,Urine Negative ng/ml (<50)
[2023-01-06 19:20] LABS: Cocaine Screen,Urine Negative ng/ml (<300)
[2023-01-06 19:21] LABS: Methadone Screen,Urine Negative ng/ml (<300); Opiate Screen,Urine Positive ng/ml (<300)
[2023-01-06 19:22] LABS: Phencyclidine Screen,Urine Negative ng/ml (<25)
== END ==
LOC: LAB.DROPOF 01-07 00:49
PROVIDERS: PCP Emergency Medicine; Visit Provider Emergency Medicine
DX: Z79.899 Other long term (current) drug therapy (principal)
CPT/HCPCS: 80305

== ENCOUNTER → 2023-03-03 23:41 | Outpatient (CLI) | payer MEDICARE, MEDICAID, SELFPAY ==
[2023-03-03 20:48] LABS: Amphetamine/Metha Screen,Urine Negative ng/ml (<1000)
[2023-03-03 20:49] LABS: Barbiturates Screen,Urine Negative ng/ml (<200)
[2023-03-03 20:50] LABS: Benzodiazepines Screen,Urine Positive ng/ml (<200)
[2023-03-03 20:51] LABS: Cocaine Screen,Urine Negative ng/ml (<300)
[2023-03-03 20:52] LABS: Methadone Screen,Urine Negative ng/ml (<300)
[2023-03-03 20:54] LABS: Opiate Screen,Urine Positive ng/ml (<300); Phencyclidine Screen,Urine Negative ng/ml (<25)
[2023-03-03 20:58] LABS: Cannabinoid Screen,Urine Negative ng/ml (<50)
== END ==
PROVIDERS: PCP Emergency Medicine; Visit Provider Emergency Medicine
DX: Z79.899 Other long term (current) drug therapy (principal)
CPT/HCPCS: 80305

== ENCOUNTER 2023-05-25 13:16 | Outpatient (POV) | payer MEDICARE, MEDICAID, SELFPAY | END 2023-05-25 23:59 | disposition home or self-care (01) | LOC: SC 13:17 | PROVIDERS: PCP Internal Medicine; Visit Provider Dermatology | DX: Z00.00 Encounter for general adult medical examination without abnormal findings (principal) ==

== ENCOUNTER 2023-06-07 12:32 | Outpatient (CLI) | payer MEDICARE, MEDICAID, SELFPAY ==
[2023-06-07 12:53] LABS: Basophils # 0.1 K/mm3 (0-0.2); Basophils % 0.6 % (0.1-2.0); Eosinophils # 0.1 K/mm3 (0.0-0.4); Eosinophils % 1.2 % (0.1-12.0); Hemoglobin 13.7 g/dL (12.2-16.2); Lymphocytes # 3.5 K/mm3 (0.7-4.5); Lymphocytes % 36.7 % (10-50); Mean Corpuscular HGB Conc 34.2 g/dL (31.8-35.4); Mean Corpuscular Hemoglobin 30.6 pg (27.0-31.2); Mean Corpuscular Volume 89.6 fl (81-99); Mean Platelet Volume 8.5 fl (7.4-10.4); Monocytes # 0.5 K/mm3 (0.1-1.0); Monocytes % 5.4 % (1.7-9.3); Neutrophils # 5.4 K/mm3 (1.8-7.8); Neutrophils % 56.3 % (37.0-80.0); Platelet Count 330 K/mm3 (142-424); Red Blood Count 4.46 M/mm3 (4.20-5.40); Red Cell Distribution Width 12.9 % (11.5-17.5); White Blood Count 9.6 K/mm3 (4.8-10.8)
[2023-06-07 13:14] LABS: Alanine Aminotransferase 36 U/L (12-78); Albumin Level 4.2 g/dl (3.5-5.0); Albumin/Globulin Ratio 1.6 (1.1-1.8); Alkaline Phosphatase 87 U/L (38-126); Anion Gap 13.3 mEq/L (5-15); Aspartate Amino Transferase 41 U/L (14-36); Bilirubin,Total 0.4 mg/dl (0.2-1.3); Blood Urea Nitrogen 8 mg/dl (7-17); Calcium 8.8 mg/dl (8.4-10.2); Carbon Dioxide 28 mmol/L (22.0-30.0); Chloride 102 mmol/L (98-107); Chol/HDL Ratio 5.2 (1-3.5); Cholesterol 194 mg/dl (140-200); Estimated Glomerular Filt Rate 50 ml/min (>60); GFR (African American) 61 ML/MIN (>60); Globulin 2.6 g/dL (1.3-3.2); Glucose 131 mg/dl (74-100); HDL Cholesterol 37 mg/dl (40-60); Potassium 3.3 mmoL/L (3.5-5.1); Sodium 140 mmol/L (136-145); Total Protein,Serum 6.8 g/dl (6.3-8.2); Triglycerides 330 mg/dl (30-150); VLDL Cholesterol 66 mg/dL (0-40)
[2023-06-07 13:25] LABS: Direct LDL Cholesterol 89.64 mg/dL (100-129)
[2023-06-07 13:30] LABS: 25-OH Vitamin D, Total 39.3 ng/mL (30-100)
[2023-06-07 13:45] LABS: Thyroid Stimulating Hormone 3.22 uIU/mL (0.465-4.68)
[2023-06-07 14:04] LABS: Vitamin B12 274 pg/mL (239-931)
[2023-06-07 17:06] LABS: Creatinine,Urine Random 290 mg/dL (Not Estab.)
== END 2023-06-07 23:59 ==
LOC: LAB.DROPOF 12:33
PROVIDERS: PCP Internal Medicine; Visit Provider Internal Medicine
DX: E55.9 Vitamin D deficiency, unspecified (principal); E53.8 Deficiency of other specified B group vitamins; E05.90 Thyrotoxicosis, unspecified without thyrotoxic crisis or storm; R53.83 Other fatigue; E78.5 Hyperlipidemia, unspecified; E11.9 Type 2 diabetes mellitus without complications; Z79.899 Other long term (current) drug therapy
CPT/HCPCS: 80053; 80061; 82043; 82306; 82570; 82607; 84443; 85025

== ENCOUNTER 2023-07-01 21:44 | Outpatient (CLI) | payer MEDICARE, MEDICAID, SELFPAY ==
[2023-07-01 18:01] LABS: Coronavirus 19, PCR Not Detected (NotDetected); Influenza A, PCR Not Detected (NotDetected); Influenza B, PCR Not Detected (NotDetected)
[2023-07-01 19:50] LABS: Chloride 102 mmol/L (98-107); Potassium 4.2 mmoL/L (3.5-5.1); Sodium 139 mmol/L (136-145)
[2023-07-01 19:53] LABS: Alanine Aminotransferase 35 U/L (12-78); Albumin Level 3.9 g/dl (3.5-5.0); Albumin/Globulin Ratio 1.7 (1.1-1.8); Alkaline Phosphatase 100 U/L (38-126); Anion Gap 9.2 mEq/L (5-15); Aspartate Amino Transferase 46 U/L (14-36); Bilirubin,Total 0.3 mg/dl (0.2-1.3); Blood Urea Nitrogen 8 mg/dl (7-17); Carbon Dioxide 32 mmol/L (22.0-30.0); Estimated Glomerular Filt Rate 50 ml/min (>60); GFR (African American) 61 ML/MIN (>60); Globulin 2.3 g/dL (1.3-3.2); Total Protein,Serum 6.2 g/dl (6.3-8.2)
[2023-07-01 19:54] LABS: Calcium 8.7 mg/dl (8.4-10.2); Glucose 108 mg/dl (74-100)
[2023-07-01 20:29] LABS: Hemoglobin A1C 5.9 % (4.0-6.0)
== END 2023-07-01 23:59 ==
LOC: LAB.DROPOF 21:44
PROVIDERS: PCP Internal Medicine; Visit Provider Internal Medicine
DX: R06.02 Shortness of breath (principal); N18.31 Chronic kidney disease, stage 3a; Z79.899 Other long term (current) drug therapy; R73.09 Other abnormal glucose; R05.9 Cough, unspecified; R50.9 Fever, unspecified
CPT/HCPCS: 80053; 83036; 87636

== ENCOUNTER 2023-07-20 14:51 | Outpatient (POV) | payer MEDICARE, MEDICAID, SELFPAY | END 2023-07-20 23:59 | disposition home or self-care (01) | LOC: SC 14:51 | PROVIDERS: PCP Internal Medicine; Visit Provider Dermatology | DX: Z00.00 Encounter for general adult medical examination without abnormal findings (principal) ==

== ENCOUNTER 2023-09-02 15:44 | Outpatient (CLI) | payer MEDICARE, MEDICAID, SELFPAY ==
[2023-09-02 19:00] LABS: Basophils # 0.1 K/mm3 (0-0.2); Basophils % 0.6 % (0.1-2.0); Eosinophils # 0.1 K/mm3 (0.0-0.4); Eosinophils % 0.8 % (0.1-12.0); Hematocrit 40.6 % (37.0-47.0); Hemoglobin 13.1 g/dL (12.2-16.2); Lymphocytes # 2.7 K/mm3 (0.7-4.5); Lymphocytes % 24.7 % (10-50); Mean Corpuscular HGB Conc 32.3 g/dL (31.8-35.4); Mean Corpuscular Hemoglobin 29.3 pg (27.0-31.2); Mean Corpuscular Volume 90.6 fl (81-99); Mean Platelet Volume 9.3 fl (7.4-10.4); Monocytes # 0.6 K/mm3 (0.1-1.0); Monocytes % 5.8 % (1.7-9.3); Neutrophils # 7.6 K/mm3 (1.8-7.8); Neutrophils % 68.1 % (37.0-80.0); Platelet Count 334 K/mm3 (142-424); Red Blood Count 4.49 M/mm3 (4.20-5.40); Red Cell Distribution Width 13.7 % (11.5-17.5); White Blood Count 11.1 K/mm3 (4.8-10.8)
[2023-09-02 19:22] LABS: Alanine Aminotransferase 53 U/L (12-78); Albumin Level 4.5 g/dl (3.5-5.0); Albumin/Globulin Ratio 1.5 (1.1-1.8); Alkaline Phosphatase 93 U/L (38-126); Anion Gap 20.3 mEq/L (5-15); Aspartate Amino Transferase 61 U/L (14-36); Bilirubin,Total 0.5 mg/dl (0.2-1.3); Blood Urea Nitrogen 7 mg/dl (7-17); Calcium 9.8 mg/dl (8.4-10.2); Carbon Dioxide 31 mmol/L (22.0-30.0); Chloride 98 mmol/L (98-107); Estimated Glomerular Filt Rate 41 ml/min (>60); GFR (African American) 50 ML/MIN (>60); Globulin 3.1 g/dL (1.3-3.2); Glucose 112 mg/dl (74-100); Potassium 4.3 mmoL/L (3.5-5.1); Sodium 145 mmol/L (136-145); Total Protein,Serum 7.6 g/dl (6.3-8.2)
[2023-09-02 20:54] LABS: Hemoglobin A1C 6.2 % (4.0-6.0)
== END 2023-09-02 23:59 | disposition home or self-care (01) ==
LOC: LAB.DROPOF 09-03 15:44
PROVIDERS: PCP Internal Medicine; Visit Provider Internal Medicine
DX: R53.83 Other fatigue (principal); E78.2 Mixed hyperlipidemia; R73.09 Other abnormal glucose
CPT/HCPCS: 80053; 83036; 85025

== ENCOUNTER 2023-10-26 16:12 | Outpatient (POV) | payer MEDICARE, MEDICAID, SELFPAY | END 2023-10-26 23:59 | disposition home or self-care (01) | LOC: SC 16:12 | PROVIDERS: PCP Internal Medicine; Visit Provider Dermatology | DX: Z00.00 Encounter for general adult medical examination without abnormal findings (principal) ==

== ENCOUNTER 2023-11-08 08:30 | Outpatient (CLI) | payer MEDICARE, MEDICAID, SELFPAY ==
[2023-11-08 19:20] LABS: Chloride 105 mmol/L (98-107); Potassium 4.3 mmoL/L (3.5-5.1); Sodium 144 mmol/L (136-145)
[2023-11-08 19:22] LABS: Alanine Aminotransferase 32 U/L (12-78); Aspartate Amino Transferase 34 U/L (14-36); Blood Urea Nitrogen 4 mg/dl (7-17); Estimated Glomerular Filt Rate 45 ml/min (>60); GFR (African American) 55 ML/MIN (>60)
[2023-11-08 19:23] LABS: Albumin Level 4.3 g/dl (3.5-5.0); Albumin/Globulin Ratio 1.5 (1.1-1.8); Alkaline Phosphatase 83 U/L (38-126); Anion Gap 15.3 mEq/L (5-15); Bilirubin,Total 0.3 mg/dl (0.2-1.3); Calcium 8.9 mg/dl (8.4-10.2); Carbon Dioxide 28 mmol/L (22.0-30.0); Cholesterol 199 mg/dl (140-200); Globulin 2.8 g/dL (1.3-3.2); Glucose 123 mg/dl (74-100); HDL Cholesterol 50 mg/dl (40-60); Total Protein,Serum 7.1 g/dl (6.3-8.2); Triglycerides 235 mg/dl (30-150); VLDL Cholesterol 47 mg/dL (0-40)
[2023-11-08 19:35] LABS: Direct LDL Cholesterol 98.79 mg/dL (100-129)
== END 2023-11-08 23:59 | disposition home or self-care (01) ==
LOC: LAB.DROPOF 11-09 08:30
PROVIDERS: PCP Internal Medicine; Visit Provider Internal Medicine
DX: E78.5 Hyperlipidemia, unspecified (principal); R73.03 Prediabetes; N18.31 Chronic kidney disease, stage 3a; Z79.899 Other long term (current) drug therapy
CPT/HCPCS: 80053; 80061; 83036

== ENCOUNTER 2023-11-29 14:07 | Outpatient (CLI) | payer MEDICARE, MEDICAID, SELFPAY ==
--- NOTE | 2023-11-29 14:07 | CT_ITS ---
FINAL REPORT TECHNIQUE: Axial CT images of the chest were obtained without contrast. Low-dose protocol was utilized. This study was performed with techniques to keep radiation doses as low as reasonably achievable (ALARA). Individualized dose reduction techniques using automated exposure control or adjustment of mA and/or kV according to the patient's size were employed. CLINICAL HISTORY: lung cancer screening 1 ppd x 9 years COMPARISON: 11/06/2022 FINDINGS: CT CHEST WITHOUT, LOW DOSE SCREENING CT Di Vol: 2.90 mGy DLP: 98.73 mGy*cm There is no axillary, mediastinal, or hilar mass or adenopathy. The heart size is normal. There is no pleural or pericardial effusion. The lung windows show AC stable 2 mm nodule at the lateral left upper lobe best seen on image 21. There is a 4 mm anterior right lower lobe nodule near the major fissure, best seen on image 49 and stable. There is a calcified granuloma in the left lower lobe. No new mass or nodule identified. Limited images of the upper abdomen demonstrate fatty infiltration of the liver. The patient is postcholecystectomy. IMPRESSION: Stable right lung nodules. LR Category 2: 12 month follow-up low-dose chest CT is recommended. Reviewed, Interpreted and Dictated by Bob Zapata III, MD Transcribed by Farhana Hollis Authenticated and [facility]
== END 2023-11-29 23:59 | disposition home or self-care (01) ==
LOC: RAD 14:07
PROVIDERS: PCP Internal Medicine; Visit Provider Internal Medicine
DX: Z87.891 Personal history of nicotine dependence (principal)
CPT/HCPCS: 71271

== ENCOUNTER 2023-12-29 18:55 | Outpatient (CLI) | payer MEDICARE, MEDICAID, SELFPAY ==
[2023-12-30 12:52] LABS: HIV (1&2) Antibody Rapid NONREACTIVE (NONREACTIVE)
[2023-12-31 05:12] LABS: HBsAg Screen Negative (Negative); HCV Ab Non Reactive (Non Reactive); Hep A Ab, IGM Negative (Negative); Hep B Core Ab, IgM Negative (Negative)
== END 2023-12-29 23:59 | disposition home or self-care (01) ==
LOC: LAB.DROPOF 18:56
PROVIDERS: PCP Family Medicine; Visit Provider Family Medicine
DX: K75.9 Inflammatory liver disease, unspecified (principal)
CPT/HCPCS: 80074

== ENCOUNTER 2024-01-18 09:33 | Outpatient (POV) | payer MEDICARE, MEDICAID, SELFPAY | END 2024-01-18 23:59 | disposition home or self-care (01) | LOC: SC 09:34 | PROVIDERS: Visit Provider Dermatology | DX: Z00.00 Encounter for general adult medical examination without abnormal findings (principal) ==

== ENCOUNTER 2024-02-28 14:41 | Outpatient (CLI) | payer MEDICARE, MEDICAID, SELFPAY ==
[2024-02-28 18:08] LABS: Basophils # 0.1 K/mm3 (0-0.2); Basophils % 0.8 % (0.1-2.0); Eosinophils # 0.1 K/mm3 (0.0-0.4); Hematocrit 39.8 % (37.0-47.0); Hemoglobin 13.5 g/dL (12.2-16.2); Lymphocytes # 4.1 K/mm3 (0.7-4.5); Lymphocytes % 37.7 % (10-50); Mean Corpuscular HGB Conc 33.8 g/dL (31.8-35.4); Mean Corpuscular Hemoglobin 30.4 pg (27.0-31.2); Mean Corpuscular Volume 89.9 fl (81-99); Mean Platelet Volume 8.4 fl (7.4-10.4); Monocytes # 0.8 K/mm3 (0.1-1.0); Monocytes % 7.2 % (1.7-9.3); Neutrophils # 5.9 K/mm3 (1.8-7.8); Neutrophils % 53.4 % (37.0-80.0); Platelet Count 324 K/mm3 (142-424); Red Blood Count 4.43 M/mm3 (4.20-5.40); Red Cell Distribution Width 13.7 % (11.5-17.5)
[2024-02-28 18:47] LABS: Hemoglobin A1C 6.1 % (4.0-6.0)
[2024-02-28 18:54] LABS: Alanine Aminotransferase 42 U/L (12-78); Albumin Level 4.3 g/dl (3.5-5.0); Albumin/Globulin Ratio 1.7 (1.1-1.8); Alkaline Phosphatase 97 U/L (38-126); Anion Gap 11.6 mEq/L (5-15); Aspartate Amino Transferase 40 U/L (14-36); Bilirubin,Total 0.5 mg/dl (0.2-1.3); Blood Urea Nitrogen 10 mg/dl (7-17); Calcium 8.9 mg/dl (8.4-10.2); Carbon Dioxide 28 mmol/L (22.0-30.0); Chloride 99 mmol/L (98-107); Chol/HDL Ratio 3.3 (1-3.5); Cholesterol 168 mg/dl (140-200); Estimated Glomerular Filt Rate 50 ml/min (>60); GFR (African American) 61 ML/MIN (>60); Globulin 2.5 g/dL (1.3-3.2); Glucose 106 mg/dl (74-100); HDL Cholesterol 51 mg/dl (40-60); Potassium 3.6 mmoL/L (3.5-5.1); Sodium 135 mmol/L (136-145); Total Protein,Serum 6.8 g/dl (6.3-8.2); Triglycerides 228 mg/dl (30-150); VLDL Cholesterol 46 mg/dL (0-40)
[2024-02-28 19:06] LABS: Direct LDL Cholesterol 86.01 mg/dL (100-129)
[2024-02-28 19:13] LABS: 25-OH Vitamin D, Total 35.1 ng/mL (30-100)
[2024-02-28 22:34] LABS: Ferritin 191 ng/ml (11.1-264)
== END 2024-02-28 23:59 | disposition home or self-care (01) ==
LOC: LAB.DROPOF 02-29 12:18
PROVIDERS: PCP Family Medicine; Visit Provider Family Medicine
DX: E78.5 Hyperlipidemia, unspecified (principal); E61.1 Iron deficiency; E78.2 Mixed hyperlipidemia; R73.09 Other abnormal glucose; E03.9 Hypothyroidism, unspecified; E55.9 Vitamin D deficiency, unspecified
CPT/HCPCS: 80053; 80061; 82306; 82728; 83036; 84443; 85025

== ENCOUNTER 2024-05-29 11:42 | Outpatient (CLI) | payer MEDICARE, MEDICAID, SELFPAY ==
[2024-05-29 18:50] LABS: Hemoglobin A1C 6.2 % (4.0-6.0)
[2024-05-29 20:53] LABS: Alanine Aminotransferase 79 U/L (12-78); Albumin Level 4.9 g/dl (3.5-5.0); Alkaline Phosphatase 145 U/L (38-126); Anion Gap 17.9 mEq/L (5-15); Aspartate Amino Transferase 90 U/L (14-36); Bilirubin,Total 0.4 mg/dl (0.2-1.3); Blood Urea Nitrogen 15 mg/dl (7-17); Calcium 9.3 mg/dl (8.4-10.2); Carbon Dioxide 27 mmol/L (22.0-30.0); Chloride 98 mmol/L (98-107); Cholesterol 190 mg/dl (140-200); Estimated Glomerular Filt Rate 45 ml/min (>60); GFR (African American) 55 ML/MIN (>60); Globulin 2.4 g/dL (1.3-3.2); Glucose 85 mg/dl (74-100); HDL Cholesterol 38 mg/dl (40-60); Potassium 4.9 mmoL/L (3.5-5.1); Sodium 138 mmol/L (136-145); Total Protein,Serum 7.3 g/dl (6.3-8.2); Triglycerides 329 mg/dl (30-150); VLDL Cholesterol 66 mg/dL (0-40)
[2024-05-29 21:04] LABS: Direct LDL Cholesterol 88.03 mg/dL (100-129)
[2024-05-29 21:44] LABS: Thyroid Stimulating Hormone 3.28 uIU/mL (0.465-4.68)
== END 2024-05-29 23:59 | disposition home or self-care (01) ==
LOC: LAB.DROPOF 06-01 11:43
PROVIDERS: PCP Family Medicine; Visit Provider Family Medicine
DX: E03.9 Hypothyroidism, unspecified (principal); N18.31 Chronic kidney disease, stage 3a; R73.09 Other abnormal glucose; J42 Unspecified chronic bronchitis; E78.2 Mixed hyperlipidemia; Z79.899 Other long term (current) drug therapy
CPT/HCPCS: 80053; 80061; 83036; 84443

== ENCOUNTER 2024-08-25 13:25 | Outpatient (CLI) | payer MEDICARE, MEDICAID, SELFPAY ==
[2024-08-25 19:21] LABS: Albumin Level 4.2 g/dl (3.5-5.0); Chloride 104 mmol/L (98-107); Potassium 3.8 mmoL/L (3.5-5.1); Sodium 138 mmol/L (136-145)
[2024-08-25 19:24] LABS: Alanine Aminotransferase 46 U/L (12-78); Albumin/Globulin Ratio 1.6 (1.1-1.8); Alkaline Phosphatase 121 U/L (38-126); Anion Gap 12.8 mEq/L (5-15); Aspartate Amino Transferase 47 U/L (14-36); Bilirubin,Total 0.3 mg/dl (0.2-1.3); Blood Urea Nitrogen 9 mg/dl (7-17); Calcium 8.7 mg/dl (8.4-10.2); Carbon Dioxide 25 mmol/L (22.0-30.0); Cholesterol 174 mg/dl (140-200); Estimated Glomerular Filt Rate 56 ml/min (>60); GFR (African American) 68 ML/MIN (>60); Globulin 2.6 g/dL (1.3-3.2); Glucose 147 mg/dl (74-100); Total Protein,Serum 6.8 g/dl (6.3-8.2); Triglycerides 309 mg/dl (30-150); VLDL Cholesterol 62 mg/dL (0-40)
[2024-08-25 19:25] LABS: HDL Cholesterol 44 mg/dl (40-60)
[2024-08-25 19:36] LABS: Direct LDL Cholesterol 85.14 mg/dL (100-129)
== END 2024-08-25 23:59 ==
LOC: LAB.DROPOF 08-28 11:17
PROVIDERS: PCP Family Medicine; Visit Provider Family Medicine
DX: I10 Essential (primary) hypertension (principal); F17.210 Nicotine dependence, cigarettes, uncomplicated
CPT/HCPCS: 80053; 80061

== ENCOUNTER 2024-12-21 13:33 | Outpatient (CLI) | payer MEDICARE, MEDICAID, SELFPAY ==
--- NOTE | 2024-12-21 13:35 | XR_ITS ---
FINAL REPORT CLINICAL HISTORY: left knee pain COMPARISON: None FINDINGS: AP, lateral and oblique views of the left knee were obtained. There is no prior exam for comparison. There is no acute osseous abnormality of the left knee. The joint space is preserved. The soft tissues are normal. There is no joint effusion. IMPRESSION: No acute osseous abnormality of the left knee. Reviewed, Interpreted and Dictated by Sangita Urbano MD Transcribed by Chayito Steen Authenticated and [facility]
--- NOTE | 2024-12-21 13:35 | XR_ITS ---
FINAL REPORT CLINICAL HISTORY: right knee pain COMPARISON: None FINDINGS: AP, lateral and oblique views of the right knee were obtained. There is no prior exam for comparison. There is no acute osseous abnormality of the right knee. The joint space is preserved. The soft tissues are normal. There is no joint effusion. IMPRESSION: No acute osseous abnormality of the right knee. Reviewed, Interpreted and Dictated by Sangita Urbano MD Transcribed by Chayito Steen Authenticated and [facility]
--- OUTSIDE RECORDS SUMMARY | 2024-12-21 13:44 | XMS_ITS | Clinical Summary ---
Author Organization Healthcare Address [address] [place] [address] Care Team Providers Care Master Baker Name Role Phone Adelso Fraga MD Primary Care Provider + [phone] Allergies Active Allergy Reactions Criticality Noted Date Comments Codeine Nausea,Rash Low 08/21/2013 Hydrocodone-Acetaminophen Other - please document in the comment field,Nausea Low 08/21/2013 Medications Ferrous Sulfate (IRON PO) 03/31/2018 Active albuterol (2.5 MG/3ML) 0.083% nebulizer solution 02/27/2015 Active albuterol (Ventolin HFA) 108 (90 Base) MCG/ACT inhaler 01/20/2018 Act brigid ALPRAZolam (Xanax) 1 MG tablet TAKE 1 TABLET 4 TIMES DAILY. 01/20/2018 Active cholecalciferol (Vitamin D-3) 125 MCG (5000 UT) capsule 01/20/2018 Active DULoxetine (Cymbalta) [address] capsule TAKE 1 CAPSULE Daily 01/20/2018 Active estradiol (Estrace) 2 MG tablet TAKE 1 TABLET DAILY. 05/04/2016 Active gabapentin (Neurontin) 600 MG tablet TAKE 1 TABLET 3 TIMES DAILY. 05/04/2016 Active levocetirizine (Xyzal) 5 MG tablet TAKE 1 TABLET DAILY IN THE EVENING. 01/20/2018 Active levothyroxine (Synthroid, Levoxyl) 50 MCG tablet TAKE 1 TABLET DAILY. 01/20/2018 Active metoprolol succinate XL (Toprol-XL) 25 MG 24 hr tablet TAKE 1 TABLET DAILY. 01/20/2018 Active montelukast (Singulair) 10 MG tablet TAKE 1 TABLET AT BEDTIME. 01/20/2018 Active potassium chloride CR (Klor-Con M20) 20 MEQ ER tablet TAKE 1 TABLET DAILY. 08/29/2020 Active pravastatin (Pravachol) 40 MG tablet TAKE 1 TABLET DAILY. 09/06/2013 Active QUEtiapine XR (SEROquel XR) 200 MG 24 hr tablet 01/20/2018 Active tiotropium (Spiriva HandiHaler) 18 MCG inhalation capsule INHALE CONTENTS OF 1 CAPSULE ONCE DAILY. 05/04/2016 Active topiramate (Topamax) 25 MG tablet 01/20/2018 Active azelastine (Astelin) 0.1 % nasal spray 01/20/2018 Active Active Problems Problem Noted Date Diagnosed Date Secondary hyperparathyroidism 05/04/2022 Proteinuria 06/05/2019 Benign essential hypertension 03/31/2018 CKD (chronic kidney disease) stage 3, GFR 30-59 ml/min 12/29/2017 Family History Medical History Relation Name Comments Cardiac disorder Father Diabetes Other 1 Other cancer Other 2 Breast cancer Other 3 Migraines Other 4 Heart attack Other 5 Rheum arthritis Other 6 Relation Name Status Comments Father Other 1 Other 2 Other 3 Other 4 Other 5 Other 6 Social History Tobacco Use Types Packs/Day Years Used Date Smoking Tobacco: Every Day Smokeless Tobacco: Never Tobacco Cessation:Ready to Q uit: Not Asked; Counseling Given: Not Answered Alcohol Use Standard Drinks/Week Comments No 0 (1 standard drink = 0.6 oz pur e alcohol) Comments Unknown Sex and Gender Information Value Date Recorded Sex Assigned at Not on file Legal Sex Female 8:48 PM EDT Gender Identity Not on file Sexual Orientation Not on file Last Filed Vital Signs Vital Sign Reading Time Taken Comments Blood Pressure 130/70 11/06/2022 2:22 PM EDT Pulse 75 05/04/2022 3:10 PM EST Temperature - - Respiratory Rate - - Oxygen Saturation - - Inhaled Oxygen Concentration - - Weight 78.9 kg (174 lb) 11/06/2022 2:22 PM EDT Height 167.6 cm (5' 6 ) 11/06/2022 2:22 PM EDT Body Mass Index 28.08 11/06/2022 2:22 PM EDT Plan of Treatment Health Maintenance Due Date Last Done Comments [facility]-Depression Screening 1960 [facility]-HIV Screening 1960 [facility]-Medicare Annual Wellness (AWV) 1960 [facility]-Infant/Child/Adol SDOH Screenings 1960 [facility]-Obesity Intervention 01/29/1966 [facility]- SDOH Screenings 01/29/1978 [facility]-Adult SDOH Screenings 01/29/1978 CT Colonography 01/29/2005 Colonoscopy 01/29/2005 FIT-DNA 01/29/2005 FIT 01/29/2005 FOBT 01/29/2005 Sigmoidoscopy 01/29/2005 [facility]-Colorectal Cancer Screening 01/29/2005 [facility]-Breast Cancer Screening 01/29/2010 [facility]-Pneumococcal Vaccine: 50 + Years (1 of 1 - PCV) 01/29/2010 [facility]-RSV Vaccine: 60+ Years o r (1 - Risk 60-74 years 1-dose series) 2020 [id number] Vaccine (3 - Moderna risk series) 09/25/2021 08/28/2021, 04/07/2021 [facility]-Zoster Vaccines (2 of 2) 10/23/2021 08/28/2021 [facility]-Influenza Vaccine (#1) 2024 06/03/2021 [facility]-DTaP,Tdap,and Td Vaccine s (2 - Td or Tdap) 08/29/2031 08/28/2021 [facility]-Hepatitis C Screening Completed 11/10/2013 HPV Vaccines Aged Out No longer eligi ble based on patient's age to complete this topic [facility]-HIB Vaccines Aged Out No longer e ligible based on patient's age to complete this topic [facility]-Hepatitis A Vaccines Aged Out No longer eligible based on patient's age to complete this topic [facility]-IPV Vaccines Aged Out No longer e ligible based on patient's age to complete this topic [facility]-Rotavirus Vaccines Aged Out No lo nger eligible based on patient's age to complete this topic Procedures Procedure Name Priority Date/Time Associated Diagnosis Comments HEPATITIS C ANTIBODY W/REFLEX TO HCV QUANT PCR Routine 11/10/2013 9:36 AM EDT from Last 3 Months or Most Recently Relevant to Health Maintenance Results * Hepatitis C Antibody (11/10/2013 9:36 AM EDT) Hepatitis C Antibody NEGATIVE Reference Range: Negative SUNQUEST 11/10/2013 9:36 AM EDT 11/10/2013 10:19 AM EDT us Historical Provider LAB BLOOD ORDERABLES Final R esult SUNQUEST from Last 3 Months or Most Recently Relevant to Health Maintenance Insurance [place] [employer] [place] Care Teams Master Baker Relationship Specialty Start Date End Date Adelso Fraga MD [address] [phone] PCP - General 09/06/20
--- NOTE | 2024-12-21 14:00 | CT_ITS ---
FINAL REPORT TECHNIQUE: Thin section axial images were obtained through the lungs using a low-dose technique per lung cancer screening protocol. Reconstruction images were obtained using the axial data. Exam was performed using dose reduction technique. CLINICAL HISTORY: lung cancer screening Former smoker quit 3 years ago. 1 ppd x10 years COMPARISON: 11/29/2023 FINDINGS: CTDL vol: 2.90 DLP: 105.51 Lungs: There is a stable right lower lobe 4 mm nodule posterior to the major fissure on series 4, image 46. Previously identified 2 mm left upper lobe nodule is not well-appreciated on today's exam. No new mass or nodule is identified. Lymph nodes: No thoracic lymphadenopathy. Mediastinum: Heart size is normal. Pleura/pericardium: No pleural or pericardial effusion. Other: Limited images of the upper abdomen reveal fatty liver. IMPRESSION: Stable right lower lobe nodule. Lung RADS: Category 1. Recommendation: Recommend chest CT low-dose in 12 months. Reviewed, Interpreted and Dictated by Sangita Urbano MD Transcribed by Stephanie Martines Authenticated and [facility]
--- NOTE | 2024-12-21 14:30 | MM_ITS ---
PROCEDURE INFORMATION: Exam: MG Bilateral Screening 3D Mammography Exam date and time: 12/21/2024 1:53 PM Age: 64 years old Clinical indication: Screening examination TECHNIQUE: Imaging protocol: Bilateral Screening tomosynthesis and 2D mammography including computer-aided detection (CAD) when performed. COMPARISON: 1. MG MM DIG SCREENING MAMM BI W/CAD 11/06/2022 1:17 PM 2. MG MM DIG SCREENING MAMM BI W/CAD 08/15/2021 4:09 PM FINDINGS: MAMMOGRAPHY: Breast composition: The breasts are heterogeneously dense, which may obscure small masses. Mass: 0.8 cm mass upper inner right breast posterior depth. Architectural distortion: None. Calcifications: No suspicious calcifications. Asymmetric density: None. Skin thickening: None. Axillary adenopathy: None. IMPRESSION: Subcentimeter right breast mass. Recommend further evaluation with right breast ultrasound. ASSESSMENT: BI-RADS Category 0: Incomplete- Need Additional Imaging Evaluation.
== END 2024-12-21 23:59 | disposition home or self-care (01) ==
LOC: RAD 13:34
PROVIDERS: PCP Family Medicine; Visit Provider Family Medicine
DX: Z12.31 Encounter for screening mammogram for malignant neoplasm of breast (principal); N63.12 Unspecified lump in the right breast, upper inner quadrant; R92.333 Mammographic heterogeneous density, bilateral breasts; R91.1 Solitary pulmonary nodule; M25.561 Pain in right knee; M25.562 Pain in left knee; Z87.891 Personal history of nicotine dependence
CPT/HCPCS: 71271; 73562; 77063; 77067

== ENCOUNTER 2025-01-23 13:11 | Outpatient (CLI) | payer MEDICARE, MEDICAID, SELFPAY ==
--- OUTSIDE RECORDS SUMMARY | 2025-01-23 13:21 | XMS_ITS | Clinical Summary ---
Author Organization Healthcare Address [address] [place] [address] Care Team Providers Care Wire Wheeler Name Role Phone Adelso Fraga MD Primary Care Provider + [phone] Allergies Active Allergy Reactions Criticality Noted Date [...] Screening 1960 [facility]-Medicare Annual Wellness (AWV) 1960 [facility]-/Child/Adol SDOH Screenings 1960 [facility]-Obesity Intervention 01/29/1966 [facility]- SDOH Screenings 01/29/1978 [facility]-Adult SDOH Screenings 01/29/1978 CT Colonography 01/29/2005 Colonoscopy 01/29/2005 FIT-DNA 01/29/2005 FIT 01/29/2005 FOBT 01/29/2005 Sigmoidoscopy 01/29/2005 [facility]-Colorectal Cancer Screening 01/29/2005 [facility]-Breast Cancer Screening 01/29/2010 [facility]-Pneumococcal Vaccine: 50 + Years (1 of 1 - PCV) 01/29/2010 [facility]-RSV Vaccine: 60+ Years o r (1 - Risk 60-74 years 1-dose series) 2020 [id number] Vaccine (3 - Moderna risk series) 09/25/2021 [...] Maintenance Insurance [place] [place] Care Teams Wire Wheeler Relationship Specialty Start Date End Date Adelso Fraga MD [address] [phone] PCP - General 09/06/20
--- NOTE | 2025-01-23 13:45 | US_ITS ---
PROCEDURE INFORMATION: Exam: US Right Breast, Complete Exam date and time: 01/23/2025 1:24 PM Age: 64 years old Clinical indication: Callback from screening for right breast mass. TECHNIQUE: Imaging protocol: Complete ultrasound of all four quadrants of the right breast and the retroareolar regions, including ultrasound of the axilla when performed. COMPARISON: 1. MG MM DIG SCREENING MAMM BI W/CAD 12/21/2024 1:53 PM 2. US BREAST RT COMPLETE 01/25/2019 11:23 AM FINDINGS: ULTRASOUND: Breast ultrasound findings: Right breast ultrasound: Benign simple cysts at 1 o'clock 8 cm from the nipple measuring 0.8 cm and at 1 o'clock 7 cm from the nipple measuring 1.0 cm corresponding to the mammographic finding in question. No solid or suspicious masses. Incidentally noted irregular hypoechoic mass at 10 o'clock 3 cm from the nipple measuring 0.5 x 0.4 x 0.4 cm. No abnormal lymph nodes in the axilla. IMPRESSION: 1. Irregular hypoechoic mass in the right breast at 10 o'clock 3 cm from the nipple is suspicious. Recommend ultrasound-guided needle biopsy. 2. Benign scattered simple cysts throughout the right breast. ASSESSMENT: BI-RADS Category 4: Suspicious.
== END 2025-01-23 23:59 | disposition home or self-care (01) ==
LOC: RAD 13:11
PROVIDERS: PCP Family Medicine; Visit Provider Family Medicine
DX: N63.11 Unspecified lump in the right breast, upper outer quadrant (principal); N60.01 Solitary cyst of right breast
CPT/HCPCS: 76641

== ENCOUNTER 2025-02-19 07:21 | Outpatient (CLI) | payer MEDICARE, MEDICAID, SELFPAY ==
--- OUTSIDE RECORDS SUMMARY | 2025-02-19 07:24 | XMS_ITS | Clinical Summary ---
Author Organization Healthcare Address [address] [place] [address] Care Team Providers Care Tool Profiling Machine Set Up Operator Name Role Phone Adelso Fraga MD Primary Care Provider + [phone] Allergies Active Allergy Reactions Criticality Noted Date [...] Health Maintenance Due Date Last Done Comments [facility]-Bone Density Scan 1960 [facility]-Depression Screening 1960 [facility]-Medicare Annual Wellness (AWV) 1960 [...] - Risk 60-74 years 1-dose series) 2020 [id number] Vaccine (3 - Moderna risk series) 09/25/2021 [...] Maintenance Insurance [place] Care Teams Tool Profiling Machine Set Up Operator Relationship Specialty Start Date End Date Adelso Fraga MD [address] [place] [address] PCP - General 09/06/20
--- NOTE | 2025-02-19 08:00 | US_ITS ---
FINAL REPORT CLINICAL HISTORY: irregular mass seen on R breast US / dr. kya escobedo / mammotome / 1000 FINDINGS: ULTRASOUND-GUIDED RIGHT BREAST CORE BIOPSY TECHNIQUE: Limited images were obtained to localize region of interest. The right breast was prepped in a routine sterile fashion and locally anesthetized with 1% lidocaine. Standard written informed consent was obtained. Lesion of interest was identified at 10:00. An 11-gauge vacuum assisted hand-held device was utilized. The needle was positioned posterior to the lesion. Multiple vacuum assisted core samples were obtained. The lesion was noted to be significantly smaller following biopsy. A biopsy marker clip was deployed in satisfactory position. Postbiopsy mammogram showed postbiopsy changes with clip in satisfactory position. Procedure was well tolerated . CONCLUSION: 1. Technically successful ultrasound guided vacuum assisted core biopsy of right breast lesion as above. 2. Biopsy marker clip deployed Authenticated and [facility]
--- NOTE | 2025-02-19 08:41 | MM_ITS ---
FINAL REPORT CLINICAL HISTORY: s/p biopsy clip placement FINDINGS: MAMMOGRAM RIGHT TECHNIQUE: Standard digital 2-D views COMPARISON: 11/06/2022 and 01/21/2025 DENSITY: There are scattered areas of fibroglandular density FINDINGS: Post biopsy marker clip is noted to be in satisfactory position. There is no associated mammographic lesion associated with the biopsy marker clip. Postbiopsy changes are noted. IMPRESSION: Biopsy marker clip in good position ASSESSMENT: A post-procedure mammogram is used to confirm the position and deployment of a breast tissue marker after a biopsy RECOMMENDATION: Pending histopathology evaluation Authenticated and [facility]
== END 2025-02-19 23:59 | disposition home or self-care (01) ==
LOC: RAD 07:22
PROVIDERS: PCP Family Medicine; Visit Provider Family Medicine
DX: N63.11 Unspecified lump in the right breast, upper outer quadrant (principal)
CPT/HCPCS: 19083; 77065; A4648; C2618

== ENCOUNTER 2025-03-05 15:44 | Outpatient (CLI) | payer MEDICARE, MEDICAID, SELFPAY ==
[2025-03-05 19:46] LABS: Hematocrit 40.3 % (37.0-47.0); Hemoglobin 13.1 g/dL (12.2-16.2); Immature Granulocytes % 0.6 %; Mean Corpuscular HGB Conc 32.5 g/dL (31.8-35.4); Mean Corpuscular Hemoglobin 29.9 pg (27.0-31.2); Mean Corpuscular Volume 92.0 fl (81-99); Nucleated Red Blood Cells % 0 %; Platelet Count 365 K/mm3 (142-424); Red Blood Count 4.38 M/mm3 (4.20-5.40); Red Cell Distribution Width-SD 41.1 fL; White Blood Count 10.5 K/mm3 (4.8-10.8)
[2025-03-05 20:05] LABS: Alanine Aminotransferase 52 U/L (12-78); Albumin Level 4.1 g/dl (3.5-5.0); Albumin/Globulin Ratio 1.2 (1.1-1.8); Alkaline Phosphatase 177 U/L (38-126); Anion Gap 13.8 mEq/L (5-15); Aspartate Amino Transferase 56 U/L (14-36); Bilirubin,Total 0.4 mg/dl (0.2-1.3); Blood Urea Nitrogen 6 mg/dl (7-17); Calcium 9.4 mg/dl (8.4-10.2); Carbon Dioxide 31 mmol/L (22.0-30.0); Chloride 96 mmol/L (98-107); Cholesterol 154 mg/dl (140-200); Creatinine,Serum 1.10 mg/dl (0.52-1.04); Estimated Glomerular Filt Rate 50 ml/min (>60); GFR (African American) 60 ML/MIN (>60); Globulin 3.3 g/dL (1.3-3.2); Glucose 85 mg/dl (74-100); HDL Cholesterol 35 mg/dl (40-60); Potassium 3.8 mmoL/L (3.5-5.1); Sodium 137 mmol/L (136-145); Total Protein,Serum 7.4 g/dl (6.3-8.2); Triglycerides 334 mg/dl (30-150)
[2025-03-05 20:20] LABS: Free T4 (Free Thyroxine) 1.02 ng/dl (0.78-2.19)
[2025-03-05 20:32] LABS: Thyroid Stimulating Hormone 1.52 uIU/mL (0.465-4.68)
[2025-03-05 22:43] LABS: Hemoglobin A1C 6.1 % (4.0-6.0)
--- OUTSIDE RECORDS SUMMARY | 2025-03-06 15:47 | XMS_ITS | Clinical Summary ---
Author Organization Healthcare Address [address] [place] [address] Care Team Providers Care Analytical Tech Name Role Phone Adelso Fraga MD Primary Care Provider + [phone] Allergies Active Allergy Reactions Criticality Noted Date [...] - Risk 60-74 years 1-dose series) 2020 [id number] Vaccine (3 - Moderna risk series) 09/25/2021 [...] Maintenance Insurance [place] Care Teams Analytical Tech Relationship Specialty Start Date End Date Adelso Fraga MD [address] [place] [address] PCP - General 09/06/20
== END 2025-03-05 23:59 | disposition home or self-care (01) ==
LOC: LAB.DROPOF 03-06 15:44
PROVIDERS: PCP Family Medicine; Visit Provider Family Medicine
DX: D64.9 Anemia, unspecified (principal); E11.9 Type 2 diabetes mellitus without complications; E03.9 Hypothyroidism, unspecified
CPT/HCPCS: 80053; 80061; 83036; 84439; 84443; 85025

== ENCOUNTER 2025-03-26 09:50 | Outpatient (CLI) | payer MEDICARE, MEDICAID, SELFPAY ==
--- OUTSIDE RECORDS SUMMARY | 2025-03-27 14:23 | XMS_ITS | Clinical Summary ---
Author Organization Healthcare Address [address] [place] [address] Care Team Providers Care Biological Chemist Name Role Phone Adelso Fraga MD Primary Care Provider + [phone] Allergies Active Allergy Reactions Criticality Noted Date [...] - Risk 60-74 years 1-dose series) 2020 [id number] Vaccine (3 - Moderna risk series) 09/25/2021 [...] Maintenance Insurance [place] Care Teams Biological Chemist Relationship Specialty Start Date End Date Adelso Fraga MD [address] [place] [address] PCP - General 09/06/20
== END 2025-03-26 23:59 | disposition home or self-care (01) ==
LOC: LAB.DROPOF 03-27 14:19
PROVIDERS: PCP Family Medicine; Visit Provider Family Medicine
DX: E11.9 Type 2 diabetes mellitus without complications (principal)
CPT/HCPCS: 82043; 82570